=== PATIENT | male | born 1945 | race Caucasian/White ===

== ENCOUNTER 2022-04-11 10:34 | Inpatient (IN) | payer MEDICARE, BC, SELFPAY ==
[2022-04-11] VITALS (11 sets, daily range): BP systolic 132–187; BP diastolic 46–106; PULSE 57–73; RESP 14–20; TEMP 36.2–37.5; O2SAT 86–98; BMI 32.6
--- NOTE | 2022-04-11 11:07 | ED.GENADULT ---
HPI - General Adult General Time Seen by Provider: 11:06 <Juan Méndez MD - Last Filed: 05/04/22 11:12> Date Seen: 04/11/22 <Juan Méndez MD - Last Filed: 05/04/22 11:12> Chief complaint: Abdominal Pain <Juan Méndez MD - Last Filed: 05/04/22 11:12> Stated complaint: abdominal pain/vomiting <Juan Méndez MD - Last Filed: 05/04/22 11:12> Time Seen by Provider: 04/11/22 11:04 <Juan Méndez MD - Last Filed: 05/04/22 11:12> Source: patient and family <Juan Méndez MD - Last Filed: 05/04/22 11:12> Mode of arrival: ambulatory <Juan Méndez MD - Last Filed: 05/04/22 11:12> Limitations: no limitations <Juan Méndez MD - Last Filed: 05/04/22 11:12> History of Present Illness HPI narrative: Bimal is a 76-year-old male past medical history includes atrial fibrillation on chronic anticoagulation with Eliquis, CAD status post coronary artery bypass, heartburn, hyperlipidemia, status post appendectomy presents emergency department with with abdominal pain and vomiting. Patient states he woke up yesterday morning and had generalized abdominal pain, bloating sensation, after he ate lunch which was a stir hester in the abdominal bloating upward. He ended up vomiting 6-7 times, nonbloody nonbilious, the generalized abdominal pain continued throughout the day and night. No associated fevers, he has had chills, his nausea has improved, he had a small hard bowel movement yesterday, he is passing gas, denies any urinary complaints. Denies any upper respiratory complaints. Pain is 8/10, generalized no radiation. Due to worsening pain he presents emergency deprtment. <Juan Méndez MD - Last Filed: 05/04/22 11:12> Related Data Home medications: Home Medications Medication Instructions Recorded Confirmed allopurinol 300 mg tablet 300 mg PO DAILY 04/11/22 04/11/22 apixaban 5 mg tablet (Eliquis) 5 mg PO BID 04/11/22 04/11/22 ascorbic acid (vitamin C) 1,000 mg 1 g PO DAILY 04/11/22 04/11/22 tablet (Vitamin C) aspirin 81 mg chewable tablet 81 mg PO DAILY 04/11/22 04/11/22 (Aspirin Childrens) atenolol 100 mg tablet 100 mg PO DAILY 04/11/22 04/11/22 atorvastatin 40 mg tablet 40 mg PO HS 04/11/22 04/11/22 cholecalciferol (vitamin D3) 50 2,000 unit PO DAILY 04/11/22 04/11/22 mcg (2,000 unit) capsule (D3-2000) coQ10 (ubiquinol) 100 mg capsule 60 mg PO DAILY 04/11/22 04/11/22 kyolic (garlic) PO DAILY 04/11/22 losartan 100 mg tablet 100 mg PO HS 04/11/22 04/11/22 magnesium citrate 100 mg capsule 400 mg PO DAILY 04/11/22 04/11/22 metformin 500 mg tablet 1,000 mg PO BIDWM 04/11/22 04/11/22 omeprazole 20 mg capsule,delayed 20 mg PO DAILY 04/11/22 04/11/22 release vitamin B complex 1 tab PO DAILY 04/11/22 04/11/22 Previous Rx's Medication Instructions Recorded oxycodone 5 mg tablet 5 mg PO Q4H PRN #15 tab 04/14/22 <Juan Méndez MD - Last Filed: 05/04/22 11:12> Allergies/adverse reactions: Allergies Allergy/AdvReac Type Severity Reaction Status Date / Time lisinopril Allergy Mild Cough Verified 04/11/22 11:02 ibuprofen AdvReac Unknown Unverified 04/11/22 19:19 <Juan Méndez MD - Last Filed: 05/04/22 11:12> Review of Systems Status of ROS: Reports: 10 or more systems reviewed and unremarkable except as noted in History and below <Juan Méndez MD - Last Filed: 05/04/22 11:12> [facility] Medical History: Medical History (Updated 04/22/22 @ 00:02 by ) Atrial fibrillation Chronic anticoagulation CKD (chronic kidney disease) stage 3, GFR 30-59 ml/min Coronary artery disease Diabetes mellitus Gallstone pancreatitis GERD (gastroesophageal reflux disease) Gout Hyperlipidemia Hypertension Paroxysmal atrial fibrillation Stroke (cerebrum) Stroke aborted by administration of thrombolytic agent <Juan Méndez MD - Last Filed: 05/04/22 11:12> Surgical History: Surgical History (Updated 04/14/22 @ 11:06 by Lily Brothers MD) H/O arthroscopic knee surgery H/O shoulder replacement History of knee replacement procedure of left knee History of knee replacement procedure of right knee History of tonsillectomy S/P appendectomy S/P CABG x 2 S/P CABG x 4 S/P ear surgery S/P laparoscopic cholecystectomy <Juan Méndez MD - Last Filed: 05/04/22 11:12> Family History: Family History (Updated 04/11/22 @ 18:17 by Lily Brothers MD) Other Coronary artery disease <Juan Méndez MD - Last Filed: 05/04/22 11:12> Social History: Social History (Updated 04/11/22 @ 18:17 by Lily Brothers MD) Narrative: 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 He is . He is a former smoker. He does not currently drink alcohol. Highest level of school completed/degree received: high school graduate Smoking Status: Former smoker Do you use any of these nicotine containing products: None How often do you have a drink containing alcohol: never AUDIT-C Alcohol total score: 0 Non-prescribed substance use: denies use Caffeine: Yes service: Yes <Juan Méndez MD - Last Filed: 05/04/22 11:12> Exam Const: Vital Signs, click to edit/add: Vital Signs - 24 hr 04/11/22 10:40 Temperature 98.0 F Pulse Rate [Right Radial] 57 L Respiratory Rate 16 Blood Pressure [Ri ght Upper Arm] 183/78 H Pulse Oximetry 98 <Juan Méndez MD - Last Filed: 05/04/22 11:12> Common normals: no apparent distress and oriented x3 <Juan Méndez MD - Last Filed: 05/04/22 11:12> Exam limitations: altered mental status <Juan Méndez MD - Last Filed: 05/04/22 11:12> General appearance: cooperative <Juan Méndez MD - Last Filed: 05/04/22 11:12> HENMT: Common normals: normocephalic, external ears normal, TM's normal bilaterally and external nose normal <Juan Méndez MD - Last Filed: 05/04/22 11:12> Head and scalp: normal to inspection and normocephalic <Juan Méndez MD - Last Filed: 05/04/22 11:12> Nose: external nose normal <Juan Méndez MD - Last Filed: 05/04/22 11:12> External ear: external ears normal <Juan Méndez MD - Last Filed: 05/04/22 11:12> Tympanic membrane: TM's normal bilaterally <Juan Méndez MD - Last Filed: 05/04/22 11:12> Mouth: oral and palatal mucosa normal <Juan Méndez MD - Last Filed: 05/04/22 11:12> Throat: posterior oropharynx normal <Juan Méndez MD - Last Filed: 05/04/22 11:12> Eye: Common normals: PERRL and EOMs intact bilaterally <Juan Méndez MD - Last Filed: 05/04/22 11:12> Pupil: PERRL <Juan Méndez MD - Last Filed: 05/04/22 11:12> Neck & C-Spine: Common normals: full ROM, no lymphadenopathy, supple and no JVD <Juan Méndez MD - Last Filed: 05/04/22 11:12> Lymph: Lymphatic: no lymphadenopathy noted <Juan Méndez MD - Last Filed: 05/04/22 11:12> Chest: Common normals: inspection of chest normal <Juan Méndez MD - Last Filed: 05/04/22 11:12> Resp: Common normals: normal respiratory effort and clear to auscultation bilaterally <Juan Méndez MD - Last Filed: 05/04/22 11:12> Auscultation: clear to auscultation bilaterally <Juan Méndez MD - Last Filed: 05/04/22 11:12> Cardio: Common normals: no JVD, S1 normal heart sound and S2 normal heart sound <Juan Méndez MD - Last Filed: 05/04/22 11:12> Heart sounds: S1 normal and S2 normal <Juan Méndez MD - Last Filed: 05/04/22 11:12> GI: Other: Tender to palpation in all four quadrant to light palpation, bowel sounds are hypoactive. As rebound, no guarding <Juan Méndez MD - Last Filed: 05/04/22 11:12> : Common normals: no CVA tenderness <Juan Méndez MD - Last Filed: 05/04/22 11:12> Bladder/kidney exam: no CVA tenderness <Juan Méndez MD - Last Filed: 05/04/22 11:12> Back & Pelvis: Common normals: no CVA tenderness and thoracic and lumbar spine normal to inspection <Juan Méndez MD - Last Filed: 05/04/22 11:12> Extremity: Common normals: normal to inspection and full ROM <Juan Méndez MD - Last Filed: 05/04/22 11:12> Neuro: Common normals: oriented x3, CN's II-XII intact bilaterally, moves all extremities and no focal motor deficits <Juan Méndez MD - Last Filed: 05/04/22 11:12> Course Course Hospital Course: Patient was admitted to the hospital with abdominal pain starting the day prior to admission. He had nausea vomiting anorexia. In the emergency department he was found to have cholecystitis with gallstone pancreatitis. Yesterday he was taken to the OR by Dr. Brothers where he had an uncomplicated laparoscopic cholecystectomy. Since that time he has done very well without postoperative complications. <Juan Méndez MD - Last Filed: 05/04/22 11:12> Reevaluation(s) Reevaluation #1: Patient was updated on his imaging results, CT showed cholelithiasis with small amount of pericholecystic fluid, noted adjacent to the 2nd portion of the duodenitis or pancreatitis, read by Dr. Castellanos. patient and updated. Plan to call Dr. Brothers. <Juan Méndez MD - Last Filed: 05/04/22 11:12> Time: 14:59 <Juan Méndez MD - Last Filed: 05/04/22 11:12> Reevaluation #2: Spoke with Dr. Brothers surgery on-call, recommend admission to the hospitalist, follow trending lipase levels, and obtain US limited rule out cholecystitis and bile duct dilatation. Possible surgery in the next 2-3 days, this discussed with patient and mammogram this plan. To call hospitalist. <Juan Méndez MD - Last Filed: 05/04/22 11:12> Time: 15:00 <Juan Méndez MD - Last Filed: 05/04/22 11:12> Reevaluation #3: Spoke with hospitalist Dr. Dillan POLO, she accepts care of the patient to a [facility] surgery bed. All questions answered. <Juan Méndez MD - Last Filed: 05/04/22 11:12> Time: 15:13 <Juan Méndez MD - Last Filed: 05/04/22 11:12> Vital Signs Vital signs: Initial Vital Signs Temperature 98.0 F 04/11/22 10:40 Temperature Source Temporal Artery Scan 04/11/22 10:40 Pulse Rate 57 L 04/11/22 10:40 Pulse Rhythm 04/11/22 10:40 Pulse Strength 0+ Absent 04/11/22 10:40 Respiratory Rate 16 04/11/22 10:40 Blood Pressure 183/78 H 04/11/22 10:40 Blood Pressure Mean 113 04/11/22 10:40 Blood Pressure Position Sitting 04/11/22 10:40 Pulse Oximetry 98 04/11/22 10:40 Oxygen Delivery Method 04/11/22 10:40 Vital Signs Temperature 98.0 F 04/11/22 10:40 Pulse Rate 57 L 04/11/22 10:40 Respiratory Rate 16 04/11/22 10:40 Blood Pressure 183/78 H 04/11/22 10:40 Pulse Oximetry 98 04/11/22 10:40 Temperature 98.4 F 04/14/22 11:44 Pulse Rate 52 L 04/14/22 11:00 Respiratory Rate 18 04/14/22 11:00 Blood Pressure 158/77 H 04/14/22 11:00 Pulse Oximetry 92 04/14/22 11:00 <Juan Méndez MD - Last Filed: 05/04/22 11:12> Medical Decision Making Lab Data Labs: Lab Results 04/11/22 04/11/22 04/11/22 Range/Units 00:26 11:47 11:47 WBC 12.67 H (4.50-11.00) K/uL RBC 4.99 (4.30-5.90) m/uL Hgb 15.1 (13.5-17.5) gm/dL Hct 45.8 (37.0-53.0) % MCV 92 (80-100) fL MCH 30 (26-34) pg MCHC 33 (32-36) gm/dL RDW Coeff of Jhonny 13.9 (11.5-15.5) % Plt Count 192 (140-440) K/uL Neut % (Auto) 83.2 H (42.0-72.0) % Lymph % (Auto) 8.3 L (20-44) % [place] % (Auto) 7.9 (0.0-11.0) % Eos % (Auto) 0.2 (0.0-7.0) % Baso % (Auto) 0.2 (0.0-3.0) % Neut # (Auto) 10.50 H (1.7-7.0) K/uL Lymph # (Auto) 1.10 (0.90-2.90) K/uL [place] # (Auto) 1.00 H (0.00-0.90) K/UL Eos # (Auto) 0.00 (0.00-0.50) K/uL Baso # (Auto) 0.00 (0.00-0.30) K/uL Abs Immat Gran (auto) 0.02 (0.00-0.30) K/uL Sodium 139 (135-149) mmol/L Potassium 4.1 (3.6-5.1) mmol/L Chloride 104 (96-114) mmol/L Carbon Dioxide 26 (20-32) mmol/L BUN 21 (7-30) mg/dL Creatinine 1.1 (0.5-1.5) mg/dL Estimated Creat Clear 62.55 Glucose 136 H (60-115) mg/dL Calcium 8.8 (8.4-10.6) mg/dL Total Bilirubin 0.7 (0.1-1.5) mg/dL AST 33 (12-35) U/L ALT 29 (4-50) U/L Alkaline Phosphatase 53 (40-150) U/L C-Reactive Protein 3.4 H (0.5-1.0) mg/dL Total Protein 6.9 (6.0-8.3) g/dL Albumin 4.2 (3.3-5.0) g/dL Lipase 3457 H (23-300) U/L Urine Color (Yellow) Urine Appearance (Clear) Urine pH (5.0-8.5) Ur Specific [place] (1.000-1.030) Urine Protein (Negative) Urine Glucose (UA) (Negative) Urine Ketones (Negative) Urine Blood (Negative) Urine Nitrite (Negative) Urine Bilirubin (Negative) Urine Urobilinogen (0.2-1.0) Ur Leukocyte Esterase (Negative) Urine RBC (0-2) Urine WBC (0-5) Ur Squamous Epith Cells (None-Few) Urine Bacteria (None) SARS-CoV-2 (PCR) (Negative) 04/11/22 04/11/22 Range/Units 12:40 15:25 WBC (4.50-11.00) K/uL RBC (4.30-5.90) m/uL Hgb (13.5-17.5) gm/dL Hct (37.0-53.0) % MCV (80-100) fL MCH (26-34) pg MCHC (32-36) gm/dL RDW Coeff of Jhonny (11.5-15.5) % Plt Count (140-440) K/uL Neut % (Auto) (42.0-72.0) % Lymph % (Auto) (20-44) % [place] % (Auto) (0.0-11.0) % Eos % (Auto) (0.0-7.0) % Baso % (Auto) (0.0-3.0) % Neut # (Auto) (1.7-7.0) K/uL Lymph # (Auto) (0.90-2.90) K/uL [place] # (Auto) (0.00-0.90) K/UL Eos # (Auto) (0.00-0.50) K/uL Baso # (Auto) (0.00-0.30) K/uL Abs Immat Gran (auto) (0.00-0.30) K/uL Sodium (135-149) mmol/L Potassium (3.6-5.1) mmol/L Chloride (96-114) mmol/L Carbon Dioxide (20-32) mmol/L BUN (7-30) mg/dL Creatinine (0.5-1.5) mg/dL Estimated Creat Clear Glucose (60-115) mg/dL Calcium (8.4-10.6) mg/dL Total Bilirubin (0.1-1.5) mg/dL AST (12-35) U/L ALT (4-50) U/L Alkaline Phosphatase (40-150) U/L C-Reactive Protein (0.5-1.0) mg/dL Total Protein (6.0-8.3) g/dL Albumin (3.3-5.0) g/dL Lipase (23-300) U/L Urine Color Yellow (Yellow) Urine Appearance Clear (Clear) Urine pH 5.5 (5.0-8.5) Ur Specific [place] >= 1.030 (1.000-1.030) Urine Protein 1+ A (Negative) Urine Glucose (UA) Negative (Negative) Urine Ketones Negative (Negative) Urine Blood Negative (Negative) Urine Nitrite Negative (Negative) Urine Bilirubin Negative (Negative) Urine Urobilinogen 0.2 (0.2-1.0) Ur Leukocyte Esterase Negative (Negative) Urine RBC 0-2 (0-2) Urine WBC 0-2 (0-5) Ur Squamous Epith Cells None (None-Few) Urine Bacteria None (None) SARS-CoV-2 (PCR) Negative SARS-CoV-2 (Negative) <Juan Méndez MD - Last Filed: 05/04/22 11:12> Discharge Plan Discharge Clinical Impression: Pancreatitis <Juan Méndez MD - Last Filed: 05/04/22 11:12> Patient Disposition: Admitted As Inpatient <Juan Méndez MD - Last Filed: 05/04/22 11:12> Condition: Improved <Juan Méndez MD - Last Filed: 05/04/22 11:12> Activity Level: No strenuous activity <Juan Méndez MD - Last Filed: 05/04/22 11:12> Activity Detail: No lifting more than 20 pounds for 2 weeks <Juan Méndez MD - Last Filed: 05/04/22 11:12> Discharge Diet: Diabetic <Juan Méndez MD - Last Filed: 05/04/22 11:12>
[2022-04-11] MEDS: fentaNYL 100 MCG/2 ML inj 50 MCG IVP (11:55)
[2022-04-11] MEDS: 0.9 % SODIUM CHLORIDE 1000 ml 1,000 ML 125 ML IV (11:55)
[2022-04-11] MEDS: ONDANSETRON 2 MG/ML inj 4 MG IVP (11:55)
[2022-04-11 12:16] LABS: Basophils Percent Auto 0.2 % (0.0-3.0); Eosinophils Percent Auto 0.2 % (0.0-7.0); Hematocrit 45.8 % (37.0-53.0); Hemoglobin* 15.1 gm/dL (13.5-17.5); Immature Granulocytes Abs Auto 0.02 K/uL (0.00-0.30); Lymphocytes Percent Auto 8.3 % (20-44); Mean Corpuscular HGB Conc 33 gm/dL (32-36); Mean Corpuscular Hemoglobin 30 pg (26-34); Mean Corpuscular Volume 92 fL (80-100); Monocytes Percent Auto 7.9 % (0.0-11.0); Neutrophils Percent Auto 83.2 % (42.0-72.0); Platelet Count* 192 K/uL (140-440); RDW Coefficient of Variation % 13.9 % (11.5-15.5); Red Blood Count 4.99 m/uL (4.30-5.90); White Blood Count* 12.67 K/uL (4.50-11.00)
[2022-04-11 12:18] LABS: Slide Review Reflex No
[2022-04-11 12:28] LABS: Chloride* 104 mmol/L (96-114); Sodium* 139 mmol/L (135-149)
[2022-04-11 12:29] LABS: Albumin* 4.2 g/dL (3.3-5.0); Potassium* 4.1 mmol/L (3.6-5.1)
[2022-04-11 12:31] LABS: Aspartate Amino Transferase* 33 U/L (12-35); Bilirubin Total* 0.7 mg/dL (0.1-1.5); Creatinine* 1.1 mg/dL (0.5-1.5); Est. Creatinine Clearance* 62.55; Estimated Glomerular Filt Rate 68.71
[2022-04-11 12:32] LABS: Alanine Aminotransferase* 29 U/L (4-50); Alkaline Phosphatase* 53 U/L (40-150); Blood Urea Nitrogen* 21 mg/dL (7-30); Calcium* 8.8 mg/dL (8.4-10.6); Carbon Dioxide* 26 mmol/L (20-32); Glucose* 136 mg/dL (60-115); Total Protein* 6.9 g/dL (6.0-8.3)
[2022-04-11 12:34] LABS: C Reactive Protein* 3.4 mg/dL (0.5-1.0)
--- NOTE | 2022-04-11 12:40 | CRLHL7_ITS ---
For Patients: As a result of the Century Cures Act, medical imaging exams and procedure reports are released immediately into your electronic medical record. You may view this report before your referring provider. If you have questions, please contact your health care provider. INDICATION: Abdominal pain and vomiting TECHNIQUE: CT abdomen and pelvis acquired with IV contrast. 100 cc Isovue 370 COMPARISON: None FINDINGS: Lower chest: Unremarkable. Liver: Unremarkable. Spleen: Unremarkable. Pancreas: Unremarkable. Gallbladder and bile ducts: Cholelithiasis. Small amount of pericholecystic fluid. Kidneys: Unremarkable. Adrenal glands: Unremarkable. Noted adjacent to the 2nd portion the duodenum. Unremarkable. Sigmoid and descending colon diverticulosis. Vascular structures: Unremarkable. Lymph nodes: Unremarkable. Miscellaneous: Small amount of free fluid in the pelvis. Pelvic Organs: Prostate and megaly. Bones: Unremarkable for age. IMPRESSION: Cholelithiasis with small amount of pericholecystic fluid. Correlate with right upper quadrant pain. Noted adjacent to the 2nd portion the duodenum. Findings may be related to duodenitis or pancreatitis. Correlate with abnormal amylase and lipase. Prostatomegaly. Dictated by Chris Castellanos MD @ 04/11/2022 2:43:28 PM Please note that all CT scans at this facility use dose modulation, iterative reconstruction, and/or weight-based dosing when appropriate to reduce radiation dose to as low as reasonably achievable. Dictated by: Chris Castellanos MD @ 04/11/2022 14:43:47 (Electronically Signed)
[2022-04-11 12:41] LABS: Lipase* 3457 U/L (23-300)
[2022-04-11 12:45] LABS: Appearance Urine Clear (Clear); Bilirubin Urine Negative (Negative); Blood Urine Negative (Negative); Color Urine Yellow (Yellow); Glucose Urine Negative (Negative); Ketones Urine Negative (Negative); Leukocyte Esterase Urine Negative (Negative); Nitrite Urine Negative (Negative); Protein Urine 1+ (Negative); Specific Gravity Urine >= 1.030 (1.000-1.030); Urobilinogen Urine 0.2 (0.2-1.0); pH Urine 5.5 (5.0-8.5)
[2022-04-11 12:53] LABS: RBC Urine 0-2 (0-2); WBC Urine 0-2 (0-5)
--- NOTE | 2022-04-11 14:57 | CRLHL7_ITS ---
For Patients: As a result of the Cures Act, medical imaging exams and procedure reports are released immediately into your electronic medical record. You may view this report before your referring provider. If you have questions, please contact your health care provider. INDICATION: Right upper quadrant pain COMPARISON: CT same day TECHNIQUE: Limited real time bourgeois scale imaging and color Doppler analysis was performed of the gallbladder. FINDINGS: Multiple echogenic stones are present within the gallbladder lumen with associated sludge corresponding to the CT. The gallbladder wall measures up to 5.5 millimeters. The common bile duct measures 6.8 millimeters. There is no evidence of common bowel duct stone. IMPRESSION: Multiple gallstones in the gallbladder lumen with associated sludge and gallbladder wall thickening concerning for cholecystitis. Dictated by Chris Vargas MD @ 04/11/2022 3:48:45 PM (Electronically Signed)
--- NOTE | 2022-04-11 15:08 | ED.NURSE ---
Bed request sent, heads up to powerhouse engineer, Rosie.
--- NOTE | 2022-04-11 15:35 | PM.IMHP1 ---
Hospitalist- H&P: HPI History of Present Illness Time Seen by Provider: 16:38 Date Seen: 04/11/22 Chief complaint: abdominal pain/vomiting Narrative: Bimal Faulkner is a 76 year old male presenting for evaluation of abdominal pain. Starting yesterday he developed progressively worsening abdominal pain, localized to mid epigastric region. Associated symptoms include nausea, vomiting, and loss of appetite. He denies fever, chest pain, sob. He presented to ED where notable workup included RUQ US showing Multiple gallstones in the gallbladder lumen with associated sludge and gallbladder wall thickening concerning for cholecystitis. Notable labs included lipase of 3457. Review of Systems Status of ROS: Reports: 10 or more systems reviewed and unremarkable except as noted in History and below [facility] Medical History (Updated 04/11/22 @ 18:16 by Lily Brothesr MD) Atrial fibrillation Chronic anticoagulation CKD (chronic kidney disease) stage 3, GFR 30-59 ml/min Coronary artery disease Diabetes mellitus GERD (gastroesophageal reflux disease) Gout Hyperlipidemia Stroke (cerebrum) Surgical History (Updated 04/11/22 @ 18:16 by Lily Brothers MD) H/O arthroscopic knee surgery H/O shoulder replacement History of knee replacement procedure of left knee History of knee replacement procedure of right knee History of tonsillectomy S/P appendectomy S/P CABG x 2 S/P CABG x 4 S/P ear surgery Family History (Updated 04/11/22 @ 18:17 by Lily Brothers MD) Other Coronary artery disease Social History (Updated 04/11/22 @ 18:17 by Lily Brothers MD) Narrative: 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 He is . He is a former smoker. He does not currently drink alcohol. Highest level of school completed/degree received: high school graduate Smoking Status: Former smoker Do you use any of these nicotine containing products: None How often do you have a drink containing alcohol: never AUDIT-C Alcohol total score: 0 Non-prescribed substance use: denies use Caffeine: Yes service: Yes Meds Home Medications and Allergies Home Medications Medication Instructions Recorded Confirmed Type allopurinol 300 mg tablet 300 mg PO DAILY 04/11/22 04/11/22 History apixaban 5 mg tablet (Eliquis) 5 mg PO BID 04/11/22 04/11/22 History ascorbic acid (vitamin C) 1,000 mg 1 g PO DAILY 04/11/22 04/11/22 History tablet (Vitamin C) aspirin 81 mg chewable tablet 81 mg PO DAILY 04/11/22 04/11/22 History (Aspirin Childrens) atenolol 100 mg tablet 100 mg PO DAILY 04/11/22 04/11/22 History atorvastatin 40 mg tablet 40 mg PO HS 04/11/22 04/11/22 History cholecalciferol (vitamin D3) 50 2,000 unit PO DAILY 04/11/22 04/11/22 History mcg (2,000 unit) capsule (D3-2000) coQ10 (ubiquinol) 100 mg capsule 60 mg PO DAILY 04/11/22 04/11/22 History kyolic (garlic) PO DAILY 04/11/22 History losartan 100 mg tablet 100 mg PO HS 04/11/22 04/11/22 History magnesium citrate 100 mg capsule 400 mg PO DAILY 04/11/22 04/11/22 History metformin 500 mg tablet 1,000 mg PO BIDWM 04/11/22 04/11/22 History omeprazole 20 mg capsule,delayed 20 mg PO DAILY 04/11/22 04/11/22 History release vitamin B complex 1 tab PO DAILY 04/11/22 04/11/22 History Allergies Allergy/AdvReac Type Severity Reaction Status Date / Time lisinopril Allergy Mild Cough Verified 04/11/22 11:02 ibuprofen AdvReac Unknown Unverified 04/11/22 19:19 Exam Narrative: Exam Narrative: Gen: NAD Neck: Supple CV: Bradycardic normal s1 s2 Lungs: CTAB Abd: Mid epigastric tenderness no rebound or guarding MSK: age appropriate muscle mass Neuro: AOX3, CN grossly intact Psych: appropriate affect Skin: warm, dry no rash on face Const: Vital Signs, click to edit/add: Vital Signs - 24 hr 04/11/22 10:40 Temperature 98.0 F Pulse Rate [Right Radial] 57 L Respiratory Rate 16 Blood Pressure [Ri ght Upper Arm] 183/78 H Pulse Oximetry 98 Hospitalist - H&P: Result Labs Labs: Short CBC 04/11/22 Range/Units 11:47 WBC 12.67 H (4.50-11.00) K/uL Hgb 15.1 (13.5-17.5) gm/dL Hct 45.8 (37.0-53.0) % Plt Count 192 (140-440) K/uL BMP 04/11/22 00:26 Sodium 139 Potassium 4.1 Chloride 104 Carbon Dioxide 26 BUN 21 Creatinine 1.1 Glucose 136 H Calcium 8.8 Liver Function 04/11/22 Range/Units 00:26 Total Bilirubin 0.7 (0.1-1.5) mg/dL AST 33 (12-35) U/L ALT 29 (4-50) U/L Alkaline Phosphatase 53 (40-150) U/L Albumin 4.2 (3.3-5.0) g/dL Urine 04/11/22 Range/Units 12:40 Urine Color Yellow (Yellow) Urine Appearance Clear (Clear) Urine pH 5.5 (5.0-8.5) Ur Specific [place] >= 1.030 (1.000-1.030) Urine Protein 1+ A (Negative) Urine Glucose (UA) Negative (Negative) Imaging US - abdomen: Radiologist's impression: Multiple gallstones in the gallbladder lumen with associated sludge and gallbladder wall thickening concerning for cholecystitis. Assessment and Plan Assessment and plan (1) Chronic anticoagulation: Status: Acute Plan Assessment: Bimal Faulkner is a 76 year old male presenting for evaluation of abdominal pain. Starting yesterday he developed progressively worsening abdominal pain, localized to mid epigastric region. Associated symptoms include nausea, vomiting, and loss of appetite. He denies fever, chest pain, sob. He presented to ED where notable workup included RUQ US showing Multiple gallstones in the gallbladder lumen with associated sludge and gallbladder wall thickening concerning for cholecystitis. Notable labs included lipase of 3457. 1. Gallstone pancreatitis; r/o cholecystitis 2. Hx of CAD/CABG-4V 3. Hx of CVA 4. Hx of CKD Stage III 5. Hx of HTN 6. Hx of HLD 7. Hx of atrial fibrillation on eliquis 8. Hx of GERD Plan -hold eliquis -pain control -IVF -IV PPI -SSI -follow lipase/LFTs; if increasing likely will need MRCP -ok to eat until timing of surgery finalized; possible surgery on Saturday Code-Full DVT ppx-SCD
[2022-04-11] MEDS: HYDROmorphone 0.5 mg/0.5 ml inj IVP ×3 (16:11→23:11)
[2022-04-11 16:23] LABS: SARS PCR* Negative SARS-CoV-2 (Negative)
--- NOTE | 2022-04-11 16:28 | ED.GENADULT ---
HPI - General Adult General Chief complaint: Abdominal Pain Stated complaint: abdominal pain/vomiting Time Seen by Provider: 04/11/22 11:04 Source: patient and family Mode of arrival: ambulatory Limitations: no limitations Related Data Home Medications Medication Instructions Recorded Confirmed allopurinol 300 mg tablet 300 mg PO DAILY 04/11/22 04/11/22 apixaban 5 mg tablet (Eliquis) 5 mg PO BID 04/11/22 04/11/22 ascorbic acid (vitamin C) 1,000 mg 1 g PO DAILY 04/11/22 04/11/22 tablet (Vitamin C) aspirin 81 mg chewable tablet 81 mg PO DAILY 04/11/22 04/11/22 (Aspirin Childrens) atenolol 100 mg tablet 100 mg PO DAILY 04/11/22 04/11/22 atorvastatin 40 mg tablet 40 mg PO HS 04/11/22 04/11/22 cholecalciferol (vitamin D3) 50 2,000 unit PO DAILY 04/11/22 04/11/22 mcg (2,000 unit) capsule (D3-2000) coQ10 (ubiquinol) 100 mg capsule 60 mg PO DAILY 04/11/22 04/11/22 kyolic (garlic) PO DAILY 04/11/22 losartan 100 mg tablet 100 mg PO HS 04/11/22 04/11/22 magnesium citrate 100 mg capsule 400 mg PO DAILY 04/11/22 04/11/22 metformin 500 mg tablet 1,000 mg PO BIDWM 04/11/22 04/11/22 omeprazole 20 mg capsule,delayed 20 mg PO DAILY 04/11/22 04/11/22 release vitamin B complex 1 tab PO DAILY 04/11/22 04/11/22 Allergies Allergy/AdvReac Type Severity Reaction Status Date / Time lisinopril Allergy Mild Cough Verified 04/11/22 11:02 ibuprofen AdvReac Unknown Unverified 04/11/22 19:19 [facility] Medical History (Updated 04/11/22 @ 18:16 by Lily Brothers MD) Atrial fibrillation Chronic anticoagulation CKD (chronic kidney disease) stage 3, GFR 30-59 ml/min Coronary artery disease Diabetes mellitus GERD (gastroesophageal reflux disease) Gout Hyperlipidemia Stroke (cerebrum) Surgical History (Updated 04/11/22 @ 18:16 by Lily Brothers MD) H/O arthroscopic knee surgery H/O shoulder replacement History of knee replacement procedure of left knee History of knee replacement procedure of right knee History of tonsillectomy S/P appendectomy S/P CABG x 2 S/P CABG x 4 S/P ear surgery Family History (Updated 04/11/22 @ 18:17 by Lily Brothers MD) Other Coronary artery disease Social History (Updated 04/11/22 @ 18:17 by Lily Brothers MD) Narrative: 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 He is . He is a former smoker. He does not currently drink alcohol. Highest level of school completed/degree received: high school graduate Smoking Status: Former smoker Do you use any of these nicotine containing products: None How often do you have a drink containing alcohol: never AUDIT-C Alcohol total score: 0 Non-prescribed substance use: denies use Caffeine: Yes service: Yes Exam Const: Vital Signs, click to edit/add: Vital Signs - 24 hr 04/11/22 10:40 04/11/22 14:30 04/11/22 15:30 Temperature 98.0 F Pulse Rate [Right Radial] 57 L 63 61 Respiratory Rate 16 16 14 Blood Pressure [Ri t Upper Arm] 183/78 H 183/84 H 177/81 H Pulse Oximetry 98 93 94 Course Course Hospital Course: 11:15 AM: Aidet performed, workup will include IV peripheral, 125 mL maintenance fluids 0.9 normal saline, will obtain CBC, CRP urinalysis, 50 mcg fentanyl and 4 mg IV Zofran for pain and nausea, suspect diverticulitis, clear obtain CT imaging Vital Signs Vital signs: Initial Vital Signs Temperature 98.0 F 04/11/22 10:40 Temperature Source Temporal Artery Scan 04/11/22 10:40 Pulse Rate 57 L 04/11/22 10:40 Pulse Rhythm 04/11/22 10:40 Pulse Strength 0+ Absent 04/11/22 10:40 Respiratory Rate 16 04/11/22 10:40 Blood Pressure 183/78 H 04/11/22 10:40 Blood Pressure Mean 113 04/11/22 10:40 Blood Pressure Position Sitting 04/11/22 10:40 Pulse Oximetry 98 04/11/22 10:40 Oxygen Delivery Method 04/11/22 10:40 Vital Signs Temperature 98.0 F 04/11/22 10:40 Pulse Rate 57 L 04/11/22 10:40 Respiratory Rate 16 04/11/22 10:40 Blood Pressure 183/78 H 04/11/22 10:40 Pulse Oximetry 98 04/11/22 10:40 Temperature 97.2 F L 04/11/22 17:06 Pulse Rate 62 04/11/22 17:06 Respiratory Rate 20 04/11/22 17:06 Blood Pressure 187/73 H 04/11/22 17:06 Pulse Oximetry 92 04/11/22 17:29 Medical Decision Making Lab Data Labs: Lab Results 04/11/22 04/11/22 04/11/22 Range/Units 00:26 11:47 11:47 WBC 12.67 H (4.50-11.00) K/uL RBC 4.99 (4.30-5.90) m/uL Hgb 15.1 (13.5-17.5) gm/dL Hct 45.8 (37.0-53.0) % MCV 92 (80-100) fL MCH 30 (26-34) pg MCHC 33 (32-36) gm/dL RDW Coeff of Jhonny 13.9 (11.5-15.5) % Plt Count 192 (140-440) K/uL Neut % (Auto) 83.2 H (42.0-72.0) % Lymph % (Auto) 8.3 L (20-44) % [place] % (Auto) 7.9 (0.0-11.0) % Eos % (Auto) 0.2 (0.0-7.0) % Baso % (Auto) 0.2 (0.0-3.0) % Neut # (Auto) 10.50 H (1.7-7.0) K/uL Lymph # (Auto) 1.10 (0.90-2.90) K/uL [place] # (Auto) 1.00 H (0.00-0.90) K/UL Eos # (Auto) 0.00 (0.00-0.50) K/uL Baso # (Auto) 0.00 (0.00-0.30) K/uL Abs Immat Gran (auto) 0.02 (0.00-0.30) K/uL Sodium 139 (135-149) mmol/L Potassium 4.1 (3.6-5.1) mmol/L Chloride 104 (96-114) mmol/L Carbon Dioxide 26 (20-32) mmol/L BUN 21 (7-30) mg/dL Creatinine 1.1 (0.5-1.5) mg/dL Estimated Creat Clear 62.55 Glucose 136 H (60-115) mg/dL Calcium 8.8 (8.4-10.6) mg/dL Total Bilirubin 0.7 (0.1-1.5) mg/dL AST 33 (12-35) U/L ALT 29 (4-50) U/L Alkaline Phosphatase 53 (40-150) U/L C-Reactive Protein 3.4 H (0.5-1.0) mg/dL Total Protein 6.9 (6.0-8.3) g/dL Albumin 4.2 (3.3-5.0) g/dL Lipase 3457 H (23-300) U/L Urine Color (Yellow) Urine Appearance (Clear) Urine pH (5.0-8.5) Ur Specific [place] (1.000-1.030) Urine Protein (Negative) Urine Glucose (UA) (Negative) Urine Ketones (Negative) Urine Blood (Negative) Urine Nitrite (Negative) Urine Bilirubin (Negative) Urine Urobilinogen (0.2-1.0) Ur Leukocyte Esterase (Negative) Urine RBC (0-2) Urine WBC (0-5) Ur Squamous Epith Cells (None-Few) Urine Bacteria (None) SARS-CoV-2 (PCR) (Negative) 04/11/22 04/11/22 Range/Units 12:40 15:25 WBC (4.50-11.00) K/uL RBC (4.30-5.90) m/uL Hgb (13.5-17.5) gm/dL Hct (37.0-53.0) % MCV (80-100) fL MCH (26-34) pg MCHC (32-36) gm/dL RDW Coeff of Jhonny (11.5-15.5) % Plt Count (140-440) K/uL Neut % (Auto) (42.0-72.0) % Lymph % (Auto) (20-44) % [place] % (Auto) (0.0-11.0) % Eos % (Auto) (0.0-7.0) % Baso % (Auto) (0.0-3.0) % Neut # (Auto) (1.7-7.0) K/uL Lymph # (Auto) (0.90-2.90) K/uL [place] # (Auto) (0.00-0.90) K/UL Eos # (Auto) (0.00-0.50) K/uL Baso # (Auto) (0.00-0.30) K/uL Abs Immat Gran (auto) (0.00-0.30) K/uL Sodium (135-149) mmol/L Potassium (3.6-5.1) mmol/L Chloride (96-114) mmol/L Carbon Dioxide (20-32) mmol/L BUN (7-30) mg/dL Creatinine (0.5-1.5) mg/dL Estimated Creat Clear Glucose (60-115) mg/dL Calcium (8.4-10.6) mg/dL Total Bilirubin (0.1-1.5) mg/dL AST (12-35) U/L ALT (4-50) U/L Alkaline Phosphatase (40-150) U/L C-Reactive Protein (0.5-1.0) mg/dL Total Protein (6.0-8.3) g/dL Albumin (3.3-5.0) g/dL Lipase (23-300) U/L Urine Color Yellow (Yellow) Urine Appearance Clear (Clear) Urine pH 5.5 (5.0-8.5) Ur Specific [place] >= 1.030 (1.000-1.030) Urine Protein 1+ A (Negative) Urine Glucose (UA) Negative (Negative) Urine Ketones Negative (Negative) Urine Blood Negative (Negative) Urine Nitrite Negative (Negative) Urine Bilirubin Negative (Negative) Urine Urobilinogen 0.2 (0.2-1.0) Ur Leukocyte Esterase Negative (Negative) Urine RBC 0-2 (0-2) Urine WBC 0-2 (0-5) Ur Squamous Epith Cells None (None-Few) Urine Bacteria None (None) SARS-CoV-2 (PCR) Negative SARS-CoV-2 (Negative) Discharge Plan Discharge Clinical Impression: Pancreatitis Patient Disposition: Admitted As Inpatient
--- NOTE | 2022-04-11 16:33 | ED.NURSE ---
Report given to M/S Aydee and Beatriz, RNs. Pt will go to Rm 258.
[2022-04-11] MEDS: LACTATED RINGERS 1000 ML 1,000 ML IV (17:45)
[2022-04-11 17:59] LABS: Glucose, Point-of-Care* 149 mg/dl (60-115)
--- NOTE | 2022-04-11 18:04 | PM.GSCN ---
History of Present Illness Consult details Consult date: 04/11/22 Reason for consult: abdominal pain Requesting physician: Juan Méndez Narrative: The patient is a 76-year-old male who presents to the emergency department with abdominal pain since yesterday morning. He states that he woke up with abdominal pain and then had lunch around 3:00 p.m.. He had some stir hester which he immediately vomited up. He states that he vomited 6-7 times after that. He has never had pain like this before. He states that the pain is located in his whole abdomen not really worse on the right or left and does not radiate. He states that pain medication helps. It is not necessarily worse with movement but he is more uncomfortable when he lays on his back. He has not had fevers. Yesterday he had small firm bowel movements which is a bit unusual for him. He states that since he started Eliquis about 6 months ago he has had loose stools. He last took his Eliquis today. Review of Systems Status of ROS: Reports: 10 or more systems reviewed and unremarkable except as noted in History and below PFSH PFS Medical History (Updated 04/11/22 @ 18:16 by Lily Brothers MD) Atrial fibrillation Chronic anticoagulation CKD (chronic kidney disease) stage 3, GFR 30-59 ml/min Coronary artery disease Diabetes mellitus GERD (gastroesophageal reflux disease) Gout Hyperlipidemia Stroke (cerebrum) Surgical History (Updated 04/11/22 @ 18:16 by Lily Brothers MD) H/O arthroscopic knee surgery H/O shoulder replacement History of knee replacement procedure of left knee History of knee replacement procedure of right knee History of tonsillectomy S/P appendectomy S/P CABG x 2 S/P CABG x 4 S/P ear surgery Family History (Updated 04/11/22 @ 18:17 by Lily Brothers MD) Other Coronary artery disease Social History (Updated 04/11/22 @ 18:17 by Lily Brothers MD) Narrative: 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 He is . He is a former smoker. He does not currently drink alcohol. Highest level of school completed/degree received: high school graduate Smoking Status: Former smoker Do you use any of these nicotine containing products: None How often do you have a drink containing alcohol: never AUDIT-C Alcohol total score: 0 Non-prescribed substance use: denies use Caffeine: Yes service: Yes Meds Home Medications and Allergies Home Medications Medication Instructions Recorded Confirmed Type allopurinol 300 mg tablet 300 mg PO DAILY 04/11/22 04/11/22 History apixaban 5 mg tablet (Eliquis) 5 mg PO BID 04/11/22 04/11/22 History ascorbic acid (vitamin C) 1,000 mg 1 g PO DAILY 04/11/22 04/11/22 History tablet (Vitamin C) aspirin 81 mg chewable tablet 81 mg PO DAILY 04/11/22 04/11/22 History (Aspirin Childrens) atenolol 100 mg tablet 100 mg PO DAILY 04/11/22 04/11/22 History atorvastatin 40 mg tablet 40 mg PO HS 04/11/22 04/11/22 History cholecalciferol (vitamin D3) 50 2,000 unit PO DAILY 04/11/22 04/11/22 History mcg (2,000 unit) capsule (D3-2000) coQ10 (ubiquinol) 100 mg capsule 60 mg PO DAILY 04/11/22 04/11/22 History kyolic (garlic) PO DAILY 04/11/22 History losartan 100 mg tablet 100 mg PO HS 04/11/22 04/11/22 History magnesium citrate 100 mg capsule 400 mg PO DAILY 04/11/22 04/11/22 History metformin 500 mg tablet 1,000 mg PO BIDWM 04/11/22 04/11/22 History omeprazole 20 mg capsule,delayed 20 mg PO DAILY 04/11/22 04/11/22 History release vitamin B complex 1 tab PO DAILY 04/11/22 04/11/22 History Allergies Allergy/AdvReac Type Severity Reaction Status Date / Time lisinopril Allergy Mild Cough Verified 04/11/22 11:02 Exam Narrative: Exam Narrative: General appearance: Alert, cooperative, and in no distress Eyes: PERRLA, eye lids clear, and sclera white HENT Head: Normocephalic Ears: External ears normal Pulmonary: Clear to auscultation bilaterally Cardiovascular Heart: regular rate and rhythm Gastrointestinal Abdominal: scars consistent with surgical history. He is diffusely tender in his abdomen with some guarding. The pain seems to be worst in the epigastric region right upper quadrant. No hernias. Musculoskeletal: Extremities: Upper: Both upper extremities have normal joint range of motion and intact strength. Lower: Both lower extremities have normal joint range of motion and intact strength. Skin: Normal skin color, texture, and turgor. No rashes or lesions. Neurologic: No focal deficits Psychiatric: Alert, oriented, cooperative, normal affect. Const: Vital Signs, click to edit/add: Vital Signs - 24 hr 04/11/22 10:40 04/11/22 14:30 04/11/22 15:30 Temperature 98.0 F Pulse Rate Pulse Rate [Right Pulse Oximeter] Pulse Rate [Right Radial] 57 L 63 61 Respiratory Rate 16 16 14 Blood Pressure Blood Pressure [Ri ght Arm] Blood Pressure [Ri ght Upper Arm] 183/78 H 183/84 H 177/81 H Pulse Oximetry 98 93 94 04/11/22 16:48 04/11/22 17:06 04/11/22 17:29 Temperature 98.0 F 97.2 F L Pulse Rate 63 Pulse Rate [Right Pulse Oximeter] 62 Pulse Rate [Right Radial] Respiratory Rate 14 20 Blood Pressure 177/81 H Blood Pressure [Ri ght Arm] 187/73 H Blood Pressure [Ri ght Upper Arm] Pulse Oximetry 92 92 Results Labs Labs: Abnormal lab results 04/11/22 04/11/22 04/11/22 Range/Units 00:26 11:47 11:47 WBC 12.67 H (4.50-11.00) K/uL Neut % (Auto) 83.2 H (42.0-72.0) % Lymph % (Auto) 8.3 L (20-44) % Neut # (Auto) 10.50 H (1.7-7.0) K/uL [place] # (Auto) 1.00 H (0.00-0.90) K/UL Glucose 136 H (60-115) mg/dL C-Reactive Protein 3.4 H (0.5-1.0) mg/dL Lipase 3457 H (23-300) U/L Urine Protein (Negative) POC Glucose (60-115) mg/dl 04/11/22 04/11/22 Range/Units 12:40 17:50 WBC (4.50-11.00) K/uL Neut % (Auto) (42.0-72.0) % Lymph % (Auto) (20-44) % Neut # (Auto) (1.7-7.0) K/uL [place] # (Auto) (0.00-0.90) K/UL Glucose (60-115) mg/dL C-Reactive Protein (0.5-1.0) mg/dL Lipase (23-300) U/L Urine Protein 1+ A (Negative) POC Glucose 149 H (60-115) mg/dl Diabetes panel 04/11/22 Range/Units 00:26 Sodium 139 (135-149) mmol/L Potassium 4.1 (3.6-5.1) mmol/L Chloride 104 (96-114) mmol/L Carbon Dioxide 26 (20-32) mmol/L BUN 21 (7-30) mg/dL Creatinine 1.1 (0.5-1.5) mg/dL Glucose 136 H (60-115) mg/dL Calcium 8.8 (8.4-10.6) mg/dL AST 33 (12-35) U/L ALT 29 (4-50) U/L Alkaline Phosphatase 53 (40-150) U/L Total Protein 6.9 (6.0-8.3) g/dL Albumin 4.2 (3.3-5.0) g/dL Calcium panel 04/11/22 Range/Units 00:26 Calcium 8.8 (8.4-10.6) mg/dL Albumin 4.2 (3.3-5.0) g/dL Pituitary panel 04/11/22 Range/Units 00:26 Sodium 139 (135-149) mmol/L Potassium 4.1 (3.6-5.1) mmol/L Chloride 104 (96-114) mmol/L Carbon Dioxide 26 (20-32) mmol/L BUN 21 (7-30) mg/dL Creatinine 1.1 (0.5-1.5) mg/dL Glucose 136 H (60-115) mg/dL Calcium 8.8 (8.4-10.6) mg/dL Adrenal panel 04/11/22 Range/Units 00:26 Sodium 139 (135-149) mmol/L Potassium 4.1 (3.6-5.1) mmol/L Chloride 104 (96-114) mmol/L Carbon Dioxide 26 (20-32) mmol/L BUN 21 (7-30) mg/dL Creatinine 1.1 (0.5-1.5) mg/dL Glucose 136 H (60-115) mg/dL Calcium 8.8 (8.4-10.6) mg/dL Total Bilirubin 0.7 (0.1-1.5) mg/dL AST 33 (12-35) U/L ALT 29 (4-50) U/L Alkaline Phosphatase 53 (40-150) U/L Total Protein 6.9 (6.0-8.3) g/dL Albumin 4.2 (3.3-5.0) g/dL All other labs normal. Imaging Additional studies: Diagnostic Imaging Report Patient: Bimal Faulkner [facility]#: [id number]: [id number]: [id number] Date: 04/11/22Attending Dr: Ronak Grimaldo M.D. Ordering Physician: Juan Méndez M.D. Date of Service: 04/11/22 Procedure(s): US abdomen limited Accession Number(s): [id number] cc: Zonia Galloway MD; Juan Méndez M.D.~ For Patients: As a result of the Cures Act, medical imaging exams and procedure reports are released immediately into your electronic medical record. You may view this report before your referring provider. If you have questions, please contact your health care provider. INDICATION: Right upper quadrant pain COMPARISON: CT same day TECHNIQUE: Limited real time bourgeois scale imaging and color Doppler analysis was performed of the gallbladder. FINDINGS: Multiple echogenic stones are present within the gallbladder lumen with associated sludge corresponding to the CT. The gallbladder wall measures up to 5.5 millimeters. The common bile duct measures 6.8 millimeters. There is no evidence of common bowel duct stone. IMPRESSION: Multiple gallstones in the gallbladder lumen with associated sludge and gallbladder wall thickening concerning for cholecystitis. Dictated by Chris Vargas MD @ 04/11/2022 3:48:45 PM (Electronically Signed) Diagnostic Imaging Report Patient: Bimal Faulkner [facility]#: [id number]: [id number]:[id number]: EDService Date: 04/11/22Attending Dr: Ordering Physician: Juan Méndez M.D. Date of Service: 04/11/22 Procedure(s): CT abdomen pelvis w con Accession Number(s): [id number] cc: Zonia Galloway MD; Juan Méndez M.D.~ For Patients: As a result of the Century Cures Act, medical imaging exams and procedure reports are released immediately into your electronic medical record. You may view this report before your referring provider. If you have questions, please contact your health care provider. INDICATION: Abdominal pain and vomiting TECHNIQUE: CT abdomen and pelvis acquired with IV contrast. 100 cc Isovue 370 COMPARISON: None FINDINGS: Lower chest: Unremarkable. Liver: Unremarkable. Spleen: Unremarkable. Pancreas: Unremarkable. Gallbladder and bile ducts: Cholelithiasis. Small amount of pericholecystic fluid. Kidneys: Unremarkable. Adrenal glands: Unremarkable. Noted adjacent to the 2nd portion the duodenum. Unremarkable. Sigmoid and descending colon diverticulosis. Vascular structures: Unremarkable. Lymph nodes: Unremarkable. Miscellaneous: Small amount of free fluid in the pelvis. Pelvic Organs: Prostate and megaly. Bones: Unremarkable for age. IMPRESSION: Cholelithiasis with small amount of pericholecystic fluid. Correlate with right upper quadrant pain. Noted adjacent to the 2nd portion the duodenum. Findings may be related to duodenitis or pancreatitis. Correlate with abnormal amylase and lipase. Prostatomegaly. Dictated by Chris Castellanos MD @ 04/11/2022 2:43:28 PM Please note that all CT scans at this facility use dose modulation, iterative reconstruction, and/or weight-based dosing when appropriate to reduce radiation dose to as low as reasonably achievable. Dictated by: Chris Castellanos MD @ 04/11/2022 14:43:47 (Electronically Signed) Echocardiogram done in 2019 for CVA showed: Final Impressions: Limited Echocardiogram performed 1. Normal LV size, normal wall thickness, normal function with an estimated EF of 60 - 65%. 2. Inferior wall and posterior wall are abnormal. 3. Right ventricular cavity size is normal, global systolic RV function is normal. 4. No hemodynamically significant valve disease detected. 5. Negative bubble study. Assessment and Plan Assessment and plan (1) Chronic anticoagulation: Status: Acute (2) Cholecystitis: Status: Acute (3) Pancreatitis: Status: Acute (4) Coronary artery disease: Status: Acute (5) Diabetes mellitus: Status: Acute Plan The patient is a 76-year-old male with likely gallstone pancreatitis and possible cholecystitis. We discussed that the treatment for this is to allow the pancreas to cool off and follow labs, and once he is improved we would proceed with cholecystectomy. However, if his pancreatitis worsens then we would have to evaluate the common bile duct to see if there is an obstructing stone and he may need ERCP 1st. He is currently anticoagulated with Eliquis and took his last dose today. For that reason he will need to wait 2-3 days before proceeding for surgery which should correspond with his pancreas improving as well. Because of his white count and cholecystitis as well as diabetes status, I do recommend antibiotics. He and I discussed gallbladder anatomy, physiology as well as cholecystectomy. we discussed risks of surgery including bleeding, injury to other structures, need for conversion to open and need for additional procedures. We also discussed benefits of surgery to prevent further episodes of pancreatitis as well as recovery. we will plan on repeating labs tomorrow and depending on those labs we will decide on continued NPO status and IV fluids versus MRCP. Likely surgery would not be possible for Saturday given the amount of fluid around the pancreas and the fact that he is on Eliquis. I would plan to do a cholangiogram at the time of surgery as well. Given his significant cardiac history will make sure that he has no cardiac contraindications to surgery. I did discuss the plan with Dr. Low. the patient is agreeable with this plan.
[2022-04-11] MEDS: LACTATED RINGERS 1000 ML 1,000 ML 125 ML IV (18:56)
--- NOTE | 2022-04-11 19:05 | PC.NURSE ---
[id number] Pt arrived to the unit at 1545 from the ED and accompanied by . Primary c/o abdominal pain and nausea since 04/10/22, CT and U/S found abnormalities to pancreas and gallbladder. Lipase levels elevated to above 3000. Pain managed in ED with fentanyl for pain 05/16, pain score on unit 03/16. Ambulates and transfers independently. Alert and oriented x3. Hearing aids in place. Regular diet ordered but starting with liquids and advanced as tolerated per patient request. vital signs stable, IV R AC patent and asymptomatic.
[2022-04-11] MEDS: PIPERACILLIN/TAZOBACTAM 4.5 GM in 0.9 % SODIUM CHLORIDE Mini-bag 100 ML IVPB (19:55)
--- NOTE | 2022-04-11 20:28 | PC.NURSE ---
Addendum entered by West Torres RN 04/12/22 04:35: 0400 rates pain 2/10 gave Tylenol. Temp 98.1. Using urinal in bed. Ind w/cares. Tolerating water. Addendum entered by West Torres RN 04/12/22 00:13: Temp WNL rigors resolved. BP and P trending downwards. Routine vitals. Remains on 4LNC occ tachypneic. Pain to a 4/10 gave Dilaudid. Peripheral pulses picking up and pt warmed up. Was kept NPO til 2300 and then clear liquids. Original Note: Temp 99.5. Pain 8/10. Pt is having rigors, a delayed cap refill and weak peripheral pulses. Abdomen is exquisitely tender to light palpation generally. O2 sats 90% on RA. Dilaudid given. O2 sats 86% RA. O2 increased stepwise to 4LNC. NIBP applied 15min. Hand and feet are cool. BP 177/106. BG spot check 99. Zosyn given still awaiting pharm verification. Entered Yusuf for Ibuprofen per pt report. Entered order for Tylenol. Dr. Grimaldo notified order given for STAT Lactate.
[2022-04-11] MEDS: ACETAMINOPHEN 325 MG TABLET 650 MG PO (20:53)
[2022-04-11] MEDS: PANTOPRAZOLE SODIUM 40 MG INJ IVP (20:53)
[2022-04-11 21:04] LABS: Lactate* 1.4 mmol/L (0.5-1.9)
[2022-04-11 21:08] LABS: Glucose, Point-of-Care* 99 mg/dl (60-115)
[2022-04-12] VITALS (9 sets, daily range): BP systolic 132–181; BP diastolic 56–83; PULSE 67–82; RESP 20–24; TEMP 36.6–37.4; O2SAT 91–94
[2022-04-12] MEDS: HYDROmorphone 0.5 mg/0.5 ml inj IVP ×6 (01:34→19:57)
[2022-04-12] MEDS: PIPERACILLIN/TAZOBACTAM 4.5 GM in 0.9 % SODIUM CHLORIDE Mini-bag 100 ML IVPB ×4 (01:38→19:56)
[2022-04-12] MEDS: ACETAMINOPHEN 325 MG TABLET 650 MG PO ×2 (03:42→10:19)
[2022-04-12] MEDS: LACTATED RINGERS 1000 ML 1,000 ML 125 ML IV ×2 (05:42→16:58)
[2022-04-12 07:16] LABS: Basophils Percent Auto 0.1 % (0.0-3.0); Eosinophils Percent Auto 0.5 % (0.0-7.0); Hematocrit 40.9 % (37.0-53.0); Hemoglobin* 13.4 gm/dL (13.5-17.5); Immature Granulocytes Abs Auto 0.04 K/uL (0.00-0.30); Lymphocytes Percent Auto 7.7 % (20-44); Mean Corpuscular HGB Conc 33 gm/dL (32-36); Mean Corpuscular Hemoglobin 31 pg (26-34); Mean Corpuscular Volume 93 fL (80-100); Monocytes Percent Auto 10.3 % (0.0-11.0); Neutrophils Percent Auto 81.1 % (42.0-72.0); Platelet Count* 158 K/uL (140-440); RDW Coefficient of Variation % 13.9 % (11.5-15.5); Red Blood Count 4.39 m/uL (4.30-5.90); White Blood Count* 13.83 K/uL (4.50-11.00)
[2022-04-12 07:18] LABS: Slide Review Reflex No
[2022-04-12 07:31] LABS: Albumin* 3.4 g/dL (3.3-5.0); Chloride* 105 mmol/L (96-114)
[2022-04-12 07:32] LABS: Potassium* 3.8 mmol/L (3.6-5.1); Sodium* 138 mmol/L (135-149)
[2022-04-12 07:34] LABS: Alkaline Phosphatase* 44 U/L (40-150); Aspartate Amino Transferase* 27 U/L (12-35); Bilirubin Direct* 0.4 mg/dL (0.0-0.5); Blood Urea Nitrogen* 16 mg/dL (7-30); Carbon Dioxide* 28 mmol/L (20-32); Creatinine* 1.1 mg/dL (0.5-1.5); Est. Creatinine Clearance* 62.55; Estimated Glomerular Filt Rate 68.71
[2022-04-12 07:35] LABS: Alanine Aminotransferase* 19 U/L (4-50); Calcium* 7.8 mg/dL (8.4-10.6); Glucose* 106 mg/dL (60-115); Lipase* 794 U/L (23-300)
[2022-04-12] MEDS: PANTOPRAZOLE SODIUM 40 MG INJ IVP (09:11)
[2022-04-12] MEDS: SODIUM CHLORIDE 0.9 % (FLUSH) 10 ML SYRINGE 5 ML IVF ×3 (09:12→13:55)
[2022-04-12 09:19] LABS: Troponin I* 0.02 ng/mL (0.01-0.04)
[2022-04-12 10:04] LABS: Troponin I* < 0.01 ng/mL (0.01-0.04)
--- NOTE | 2022-04-12 10:12 | PM.IMPN1 ---
Progress Note: A&P Assessment and plan (1) Gallstone pancreatitis: Status: Resolved Assessment and Plan: Lipase has decreased markedly. However patient looks flushed and new oxygen need was noted overnight. 1 L per nasal cannula to keep sats greater than 90%. Respiratory rate is up little to 24. VBG and two-view chest x-ray show: Bilateral atelectasis with trace effusions. No infiltrates. No evidence of pulmonary edema or ARDS. Venous blood gas is reassuring. Patient continues on piperacillin tazobactam. Blood cultures were not drawn. As his lipase has decreased nicely, I am offering him a clear diet. We will keep him NPO at midnight for possible surgery tomorrow. I have ordered blood culture, GGT, A1c, magnesium, BNP, pro lucian, INR, TSH, uric acid, venous blood gas (2) Acute respiratory failure with hypoxia: Status: Resolved Assessment and Plan: New oxygen requirement overnight, however, no workup was started at that time. No history of BOGDAN. Chest x-ray this morning shows bilateral atelectasis with trace effusions. VBG pending. Oxygen requirement has been stable at 1 liter/minute. I suspect this is from overall illness and atelectasis. I will order incentive spirometry and arobika bedside. (3) Coronary artery disease: Problem details: h/o of [place] 1994 1995 CABG: Lutz to D2, SVG to OM1; corroborating angiogram status post stent to proximal LAD, 95% D1 and 90% PDA left untreated 2000: Stent to proximal LAD, left main 2001: stent to RCA 2009: Restenoses of stent of LM/lad. Severe circumflex disease. Stenosis of RCA. NENO x1 to the proximal RCA, EF at that time 55% 02/2014 Stented coronary artery multivessel - [place] was last provider for cardiology Assessment and Plan: EKG was reassuring this morning. Echo is ordered for this afternoon. No evidence of acute coronary syndrome or demand ischemia. Troponin is undetectable. No chest pain. (4) CKD (chronic kidney disease) stage 3, GFR 30-59 ml/min: Status: Acute Assessment and Plan: Stable disease. GFR greater than 60. (5) Paroxysmal atrial fibrillation: Status: Acute Assessment and Plan: Holding Eliquis. Rate control with IV Lopressor as needed. Currently in sinus. (6) Hypertension: Status: Acute Assessment and Plan: I written for IV Lopressor 5 mg q.6 with parameters to hold for heart rate less than 60 or blood pressure, systolic, less than 120. Currently holding his oral home regimen. (7) Chronic anticoagulation: Problem details: Paroxysmal AFib Status: Acute Assessment and Plan: Holding Eliquis for cholecystectomy plan for likely tomorrow. Which would be a 48 hour hold on Eliquis. (8) Diabetes mellitus: Problem details: metformin monotherapy Status: Acute Assessment and Plan: A1c has previously been well controlled. Checking A1c today. Has a sliding scale insulin and Accu-Chek order. (9) Hyperlipidemia: Status: Acute Assessment and Plan: Noted. (10) Cholecystitis: Status: Resolved (11) S/P laparoscopic cholecystectomy: Status: Acute Subjective Interval history: Daily Progress Note - Hospital Medicine Day #: 2 Zosyn day 2 CC: Abdominal pain, vomiting. Gallstone pancreatitis OVERNIGHT UPDATES FROM STAFF & MED, LAB, IMAGING UPDATES Patient started requiring oxygen overnight and his respiratory rate has increased from 18-24. He denies chest pain or shortness of breath. States he feels awful. He rates his abdominal pain a 6/10. But also states he has a little bit hungry. He has never had issues with his gallbladder before. Has never had a history of pancreatitis. He states he felt fine yesterday morning and then started vomiting having abdominal pain yesterday afternoon. His last dose of Eliquis was yesterday morning. He has a complicated history and extensive coronary artery disease. However, the last intervention was 2013 with the [facility] where he received several stents. He does have a history of a three-vessel CABG in the distant past and an [place] in the . He is also newly type 2 diabetic, chronic kidney disease and has had a history of a stroke. CT abdomen pelvis from admission Blood pressure 168/70, pulse 68. Rest burst 24. Afebrile. 93% on 1 L nasal cannula oxygen. White blood cell count went from 12.6-13.8. Hemoglobin went from 15.1 down to 13.4 BMP is stable. Normal renal function with an creatinine clearance of 62. Creatinine of 1.1. Normal electrolytes. Troponin is undetectable CRP is 3.5 Lipase has dropped from 3457 down to 794. I am awaiting other labs that I added on and had redrawn this morning. IMPRESSION: Cholelithiasis with small amount of pericholecystic fluid. Correlate with right upper quadrant pain. Noted adjacent to the 2nd portion the duodenum. Findings may be related to duodenitis or pancreatitis. Correlate with abnormal amylase and lipase. Right upper quadrant ultrasound admission IMPRESSION: Multiple gallstones in the gallbladder lumen with associated sludge and gallbladder wall thickening concerning for cholecystitis. Review of Systems: See subjective Cardiac: No new chest pain/pressure/palpitations. Respiratory: no new dyspnea. GI: No abdominal bloating Objective: Patient looks ill. His face is flushed. He seems a little groggy, noting he had just received IV Dilaudid before my interview. He is generally tender across his abdomen without rebound. There is no pedal edema. There are no crackles in his lungs. He does have a soft holosystolic murmur 2/6. No clicks. Vitals: see above Lungs: Clear. No wheezes. Cardiac: S1S2. No pedal edema Abdomen: Obese. Good bowel sounds. However guards with most of my palpation. Disposition/Potential discharge - Likely to return to previous living situation. Total time is 35 minutes with greater than 50% spent in counseling and coordination of care. Exam Const: Vital Signs, click to edit/add: Vital Signs - 24 hr 04/11/22 10:40 04/11/22 14:30 04/11/22 15:30 Temperature 98.0 F Pulse Rate Pulse Rate [Right Pulse Oximeter] Pulse Rate [Right Radial] 57 L 63 61 Respiratory Rate 16 16 14 Blood Pressure Blood Pressure [Ri ght Arm] Blood Pressure [Ri ght Upper Arm] 183/78 H 183/84 H 177/81 H Pulse Oximetry 98 93 94 04/11/22 16:01 04/11/22 16:48 04/11/22 17:06 Temperature 97.2 F L 98.0 F 97.2 F L Pulse Rate 63 Pulse Rate [Right Pulse Oximeter] 62 62 Pulse Rate [Right Radial] Respiratory Rate 20 14 20 Blood Pressure 177/81 H Blood Pressure [Ri ght Arm] 187/73 H 187/73 H Blood Pressure [Ri ght Upper Arm] Pulse Oximetry 92 92 04/11/22 17:29 04/11/22 20:23 04/11/22 20:53 Temperature 99.5 F 99.5 F Pulse Rate Pulse Rate [Right Pulse Oximeter] 73 Pulse Rate [Right Radial] Respiratory Rate 16 Blood Pressure Blood Pressure [Ri ght Arm] 177/106 H Blood Pressure [Ri ght Upper Arm] Pulse Oximetry 92 86 L 04/11/22 21:18 04/11/22 23:24 04/12/22 03:48 Temperature 97.7 F 98.1 F Pulse Rate Pulse Rate [Right Pulse Oximeter] 66 69 Pulse Rate [Right Radial] Respiratory Rate 20 24 Blood Pressure Blood Pressure [Ri ght Arm] 132/46 L 165/75 H Blood Pressure [Ri ght Upper Arm] Pulse Oximetry 95 94 94 04/12/22 07:00 Temperature 97.8 F Pulse Rate Pulse Rate [Right Pulse Oximeter] 67 Pulse Rate [Right Radial] Respiratory Rate 24 Blood Pressure Blood Pressure [Ri ght Arm] 168/70 H Blood Pressure [Ri ght Upper Arm] Pulse Oximetry 94 Labs Labs: Laboratory Results - last 24 hr 04/11/22 04/11/22 04/11/22 00:26 11:47 11:47 WBC 12.67 H RBC 4.99 Hgb 15.1 Hct 45.8 MCV 92 MCH 30 MCHC 33 RDW Coeff of Jhonny 13.9 Plt Count 192 Neut % (Auto) 83.2 H Lymph % (Auto) 8.3 L [place] % (Auto) 7.9 Eos % (Auto) 0.2 Baso % (Auto) 0.2 Neut # (Auto) 10.50 H Lymph # (Auto) 1.10 [place] # (Auto) 1.00 H Eos # (Auto) 0.00 Baso # (Auto) 0.00 Abs Immat Gran (auto) 0.02 Sodium 139 Potassium 4.1 Chloride 104 Carbon Dioxide 26 BUN 21 Creatinine 1.1 Estimated Creat Clear 62.55 Glucose 136 H Lactate Calcium 8.8 Total Bilirubin 0.7 Direct Bilirubin AST 33 ALT 29 Alkaline Phosphatase 53 Troponin I C-Reactive Protein 3.4 H Total Protein 6.9 Albumin 4.2 Lipase 3457 H Urine Color Urine Appearance Urine pH Ur Specific Hood Urine Protein Urine Glucose (UA) Urine Ketones Urine Blood Urine Nitrite Urine Bilirubin Urine Urobilinogen Ur Leukocyte Esterase Urine RBC Urine WBC Ur Squamous Epith Cells Urine Bacteria SARS-CoV-2 (PCR) POC Glucose 04/11/22 04/11/22 04/11/22 12:40 15:25 17:50 WBC RBC Hgb Hct MCV MCH MCHC RDW Coeff of Jhonny Plt Count Neut % (Auto) Lymph % (Auto) [place] % (Auto) Eos % (Auto) Baso % (Auto) Neut # (Auto) Lymph # (Auto) [place] # (Auto) Eos # (Auto) Baso # (Auto) Abs Immat Gran (auto) Sodium Potassium Chloride Carbon Dioxide BUN Creatinine Estimated Creat Clear Glucose Lactate Calcium Total Bilirubin Direct Bilirubin AST ALT Alkaline Phosphatase Troponin I C-Reactive Protein Total Protein Albumin Lipase Urine Color Yellow Urine Appearance Clear Urine pH 5.5 Ur Specific Hood >= 1.030 Urine Protein 1+ A Urine Glucose (UA) Negative Urine Ketones Negative Urine Blood Negative Urine Nitrite Negative Urine Bilirubin Negative Urine Urobilinogen 0.2 Ur Leukocyte Esterase Negative Urine RBC 0-2 Urine WBC 0-2 Ur Squamous Epith Cells None Urine Bacteria None SARS-CoV-2 (PCR) Negative SARS-CoV-2 POC Glucose 149 H 04/11/22 04/11/22 04/11/22 20:00 20:05 20:05 WBC RBC Hgb Hct MCV MCH MCHC RDW Coeff of Jhonny Plt Count Neut % (Auto) Lymph % (Auto) [place] % (Auto) Eos % (Auto) Baso % (Auto) Neut # (Auto) Lymph # (Auto) [place] # (Auto) Eos # (Auto) Baso # (Auto) Abs Immat Gran (auto) Sodium Potassium Chloride Carbon Dioxide BUN Creatinine Estimated Creat Clear Glucose Lactate 1.4 Calcium Total Bilirubin Direct Bilirubin AST ALT Alkaline Phosphatase Troponin I 0.02 C-Reactive Protein Total Protein Albumin Lipase Urine Color Urine Appearance Urine pH Ur Specific Hood Urine Protein Urine Glucose (UA) Urine Ketones Urine Blood Urine Nitrite Urine Bilirubin Urine Urobilinogen Ur Leukocyte Esterase Urine RBC Urine WBC Ur Squamous Epith Cells Urine Bacteria SARS-CoV-2 (PCR) POC Glucose 99 04/12/22 04/12/22 06:44 06:44 WBC 13.83 H RBC 4.39 Hgb 13.4 L Hct 40.9 MCV 93 MCH 31 MCHC 33 RDW Coeff of Jhonny 13.9 Plt Count 158 Neut % (Auto) 81.1 H Lymph % (Auto) 7.7 L [place] % (Auto) 10.3 Eos % (Auto) 0.5 Baso % (Auto) 0.1 Neut # (Auto) 11.20 H Lymph # (Auto) 1.10 [place] # (Auto) 1.40 H Eos # (Auto) 0.10 Baso # (Auto) 0.00 Abs Immat Gran (auto) 0.04 Sodium 138 Potassium 3.8 Chloride 105 Carbon Dioxide 28 BUN 16 Creatinine 1.1 Estimated Creat Clear 62.55 Glucose 106 Lactate Calcium 7.8 L Total Bilirubin 1.0 Direct Bilirubin 0.4 AST 27 ALT 19 Alkaline Phosphatase 44 Troponin I < 0.01 L C-Reactive Protein Total Protein 6.0 Albumin 3.4 Lipase 794 H Urine Color Urine Appearance Urine pH Ur Specific Hood Urine Protein Urine Glucose (UA) Urine Ketones Urine Blood Urine Nitrite Urine Bilirubin Urine Urobilinogen Ur Leukocyte Esterase Urine RBC Urine WBC Ur Squamous Epith Cells Urine Bacteria SARS-CoV-2 (PCR) POC Glucose
--- NOTE | 2022-04-12 10:13 | CRLHL7_ITS ---
For Patients: As a result of the Cures Act, medical imaging exams and procedure reports are released immediately into your electronic medical record. You may view this report before your referring provider. If you have questions, please contact your health care provider. INDICATION: Hypoxia TECHNIQUE: Chest 1 view COMPARISON: 05/07/2020 FINDINGS: Cardiac silhouette is enlarged. Tortuosity of the aorta and vascular calcifications. Postop changes median sternotomy. No pneumothorax. Postop changes left shoulder replacement. Dependent atelectasis in both lung bases with trace pleural effusions. IMPRESSION: Bibasilar atelectasis and trace effusions. Dictated by Chris Vargas MD @ 04/12/2022 11:29:49 AM (Electronically Signed)
[2022-04-12] MEDS: OXYCODONE 5 MG TABLET PO (10:20)
--- NOTE | 2022-04-12 11:06 | PM.GSPN ---
Progress Note: A&P Assessment and plan (1) Chronic anticoagulation: Status: Acute (2) Gallstone pancreatitis: Status: Acute (3) Diabetes mellitus: Problem details: metformin monotherapy Status: Acute (4) Coronary artery disease: Problem details: h/o of [place] 1994 2008: Restenoses of stent of LM/lad. Severe circumflex disease. Stenosis of RCA. NENO x1 to the proximal RCA, EF at that time 55% 1995 CABG: Lutz to D2, SVG to OM1; corroborating angiogram status post stent to proximal LAD, 95% D1 and 90% PDA left untreated 1999: Stent to proximal LAD, left main 2001: stent to RCA Status: Acute (5) Hyperlipidemia: Status: Acute (6) CKD (chronic kidney disease) stage 3, GFR 30-59 ml/min: Status: Acute Plan The patient is a 76-year-old male with likely cholecystitis and gallstone pancreatitis. fortunately his lipase is down today which indicates that likely he passed a stone. His white count remains elevated and he has significant pain. Explained to the patient that given the degree of inflammation in the abdomen we would 1) want to see his pain improved/ resolve and 2) we will want to wait until his Eliquis is metabolized. Given his near normal kidney function 3 days should be adequate. his situation may be somewhat difficult because if he has a degree of cholecystitis his pain may not improve therefore, we will have to wait for LFTs to normalize. If he worsens then he will need MRCP. Overall this is somewhat high risk given his clinical state and medical comorbidities. I have asked Dr. Masters to evaluate the patient from a cardiopulmonary standpoint to evaluate his fitness for surgery. Subjective Subjective Interval history: Patient states his pain is about the same today. No nausea. He did have a regular diet ordered which we changed this morning. He is afebrile. No vomiting. Exam Const: Vital Signs, click to edit/add: Vital Signs - 24 hr 04/11/22 14:30 04/11/22 15:30 04/11/22 16:01 Temperature 97.2 F L Pulse Rate Pulse Rate [Right Pulse Oximeter] 62 Pulse Rate [Right Radial] 63 61 Respiratory Rate 16 14 20 Blood Pressure Blood Pressure [Ri ght Arm] 187/73 H Blood Pressure [Ri ght Upper Arm] 183/84 H 177/81 H Pulse Oximetry 93 94 92 04/11/22 16:48 04/11/22 17:06 04/11/22 17:29 Temperature 98.0 F 97.2 F L Pulse Rate 63 Pulse Rate [Right Pulse Oximeter] 62 Pulse Rate [Right Radial] Respiratory Rate 14 20 Blood Pressure 177/81 H Blood Pressure [Ri ght Arm] 187/73 H Blood Pressure [Ri ght Upper Arm] Pulse Oximetry 92 92 04/11/22 20:23 04/11/22 20:53 04/11/22 21:18 Temperature 99.5 F 99.5 F Pulse Rate Pulse Rate [Right Pulse Oximeter] 73 Pulse Rate [Right Radial] Respiratory Rate 16 Blood Pressure Blood Pressure [Ri ght Arm] 177/106 H Blood Pressure [Ri ght Upper Arm] Pulse Oximetry 86 L 95 04/11/22 23:24 04/12/22 03:48 04/12/22 07:00 Temperature 97.7 F 98.1 F 97.8 F Pulse Rate Pulse Rate [Right Pulse Oximeter] 66 69 67 Pulse Rate [Right Radial] Respiratory Rate 20 24 24 Blood Pressure Blood Pressure [Ri ght Arm] 132/46 L 165/75 H 168/70 H Blood Pressure [Ri ght Upper Arm] Pulse Oximetry 94 94 94 04/12/22 09:00 04/12/22 10:33 Temperature Pulse Rate 68 Pulse Rate [Right Pulse Oximeter] Pulse Rate [Right Radial] Respiratory Rate 24 Blood Pressure Blood Pressure [Ri ght Arm] Blood Pressure [Ri ght Upper Arm] Pulse Oximetry 93 Documenting provider has reviewed patient's vital signs: yes Common normals: no apparent distress Resp: Other: breathing is nonlabored on 1 L nasal cannula Cardio: Common normals: regular rate Rate: regular rate GI: Other: Patient's abdomen is somewhat distended and quite tender diffusely.
[2022-04-12 12:12] LABS: HCO3 VBG 27 mmol/L (21-28); PCO2 VBG 47 mmHG (40-50); pH VBG 7.374 (7.32-7.43)
[2022-04-12] MEDS: METOPROLOL TARTRATE 1 MG/ML inj 5 MG IVP ×2 (12:14→22:26)
[2022-04-12 12:37] LABS: INR 1.25 (0.91-1.10); Prothrombin Time 16.1 Seconds
[2022-04-12 12:39] LABS: Gamma Glutamyl Transpeptidase* 49 U/L (8-55)
[2022-04-12 12:40] LABS: Magnesium* 1.2 mg/dL (1.5-2.6); Uric Acid* 2.9 mg/dL (2.2-8.4)
[2022-04-12 12:49] LABS: NT Pro B Type NatriureticPept* 1100 PG/mL (0-450)
[2022-04-12 12:57] LABS: Procalcitonin* 0.11 ng/mL (<0.50)
[2022-04-12 13:48] LABS: Hemoglobin A1C* 5.93 % (0-5.6)
[2022-04-12] MEDS: FUROSEMIDE 10 MG/ML inj 20 MG IV (13:55)
--- NOTE | 2022-04-12 15:23 | PC.NURSE ---
07-1350: Pt. up w/SBA in room. No nausea/emesis. Rating abdominal pain 0-7/10, alleviated w/PRN medication. Belly tender and hypoactive bowel sounds. Voiding adequately. Tolerated clear liquid diet this shift; EKG, new labs and CXR completed. ECHO scheduled for this afternoon. Pt. afebrile, notes feeling rough, but better than last night. Poor cap refill in toe/fingernails >4 seconds. informed- cardiac assessments initiated. Taking meds w/out issues. HR regular w/occasional PVCs. Hx of A-fib, currently holding Eliquis in prep for surgery sometime tomorrow, per Dr. Brothers. BGs 105, and 161 (afer meal). Did not administer sliding scale Novolog as pt. had already eaten. requiring 1L O2 via NC to maintain sats >90%. O2 mid-upper 80s on room air. Reported to GORGE Bajwa @ [id number].
[2022-04-12] MEDS: MAGNESIUM IV 4 GM/100 ML PIGGYBACK IVPB (16:13)
--- NOTE | 2022-04-12 18:32 | PC.NURSE ---
Pt. tolerating sips of clear liquids. Bowel sounds hypoactive. Pt. reported no change in pain after receiving Dilaudid 0.5mg IV - Dr. Grimaldo notified - Dilaudid dose increased - pt. reported good relief and was able to sleep after receiving Dilaudid 1mg IV.
[2022-04-13] VITALS (21 sets, daily range): BP systolic 132–188; BP diastolic 54–82; PULSE 52–78; RESP 16–28; TEMP 36.3–36.7; O2SAT 89–95
[2022-04-13] MEDS: HYDROmorphone 0.5 mg/0.5 ml inj IVP ×4 (00:31→12:39)
[2022-04-13] MEDS: LACTATED RINGERS 1000 ML 1,000 ML 125 ML IV ×3 (00:31→16:46)
[2022-04-13] MEDS: PIPERACILLIN/TAZOBACTAM 4.5 GM in 0.9 % SODIUM CHLORIDE Mini-bag 100 ML IVPB ×2 (02:12→10:13)
[2022-04-13] MEDS: METOPROLOL TARTRATE 1 MG/ML inj 5 MG IVP ×2 (04:30→10:37)
--- NOTE | 2022-04-13 05:19 | PC.NURSE ---
Shift note 19-: Pt up ad jazmín in room, rating Abd pain 2-6/10 utilizing PRN Dilaudid approximately Q4h. NPO after MN for MRCP and poss lap lacy.
[2022-04-13 07:30] LABS: Basophils Percent Auto 0.1 % (0.0-3.0); Eosinophils Percent Auto 0.5 % (0.0-7.0); Hematocrit 42.1 % (37.0-53.0); Hemoglobin* 13.9 gm/dL (13.5-17.5); Immature Granulocytes Abs Auto 0.11 K/uL (0.00-0.30); Lymphocytes Percent Auto 7.6 % (20-44); Mean Corpuscular HGB Conc 33 gm/dL (32-36); Mean Corpuscular Hemoglobin 31 pg (26-34); Mean Corpuscular Volume 92 fL (80-100); Monocytes Percent Auto 9.7 % (0.0-11.0); Neutrophils Percent Auto 81.4 % (42.0-72.0); Platelet Count* 159 K/uL (140-440); RDW Coefficient of Variation % 13.9 % (11.5-15.5); Red Blood Count 4.56 m/uL (4.30-5.90); White Blood Count* 15.08 K/uL (4.50-11.00)
[2022-04-13 07:33] LABS: Slide Review Reflex No
[2022-04-13 07:48] LABS: HCO3 VBG 29 mmol/L (21-28); PCO2 VBG 48 mmHG (40-50); PO2 VBG 33.4 mmHG (25-47); pH VBG 7.386 (7.32-7.43)
[2022-04-13 07:56] LABS: INR 1.24 (0.91-1.10)
--- NOTE | 2022-04-13 08:00 | CRLHL7_ITS ---
For Patients: As a result of the Cures Act, medical imaging exams and procedure reports are released immediately into your electronic medical record. You may view this report before your referring provider. If you have questions, please contact your health care provider. INDICATION: Abdominal pain. COMPARISON: Ultrasound examination of the right upper quadrant of the abdomen April 11, 2022; CT abdomen and pelvis with intravenous contrast April 11, 2022. Technique: MRCP. FINDINGS: Evidence of cholelithiasis. Small amount of pericholecystic fluid as well as tiny amount of abdominal ascites. No evidence of choledocholithiasis. Peripancreatic inflammatory changes secondary to acute pancreatitis. No other abnormalities are identified. IMPRESSION: 1. Cholelithiasis with pericholecystic fluid as well as small amount of abdominal ascites; rule out acute cholecystitis. 2. No evidence of choledocholithiasis. 3. Peripancreatic inflammatory changes secondary to acute pancreatitis. 4. Small right-sided pleural effusion. Dictated by Allison Christy MD @ 04/13/2022 1:45:22 PM (Electronically Signed)
[2022-04-13 08:04] LABS: Albumin* 3.5 g/dL (3.3-5.0); Chloride* 101 mmol/L (96-114); Potassium* 4.1 mmol/L (3.6-5.1); Sodium* 135 mmol/L (135-149)
[2022-04-13 08:06] LABS: Bilirubin Total* 1.3 mg/dL (0.1-1.5); Estimated Glomerular Filt Rate 77.04
[2022-04-13 08:07] LABS: Alanine Aminotransferase* 16 U/L (4-50); Alkaline Phosphatase* 55 U/L (40-150); Aspartate Amino Transferase* 23 U/L (12-35); Blood Urea Nitrogen* 13 mg/dL (7-30); Carbon Dioxide* 28 mmol/L (20-32); Gamma Glutamyl Transpeptidase* 56 U/L (8-55); Glucose* 111 mg/dL (60-115); Lipase* 105 U/L (23-300); Total Protein* 6.3 g/dL (6.0-8.3)
[2022-04-13 08:08] LABS: Calcium* 7.7 mg/dL (8.4-10.6); Magnesium* 1.8 mg/dL (1.5-2.6)
[2022-04-13 08:16] LABS: NT Pro B Type NatriureticPept* 948 PG/mL (0-450)
[2022-04-13 08:19] LABS: Troponin I* 0.01 ng/mL (0.01-0.04)
[2022-04-13 09:01] LABS: C Reactive Protein* 27.1 mg/dL (0.5-1.0)
[2022-04-13] MEDS: LOSARTAN POTASSIUM 50 MG TABLET 100 MG PO (10:17)
[2022-04-13] MEDS: allopurinoL 300 MG TABLET PO (10:17)
[2022-04-13] MEDS: MAGNESIUM OXIDE 400 MG TABLET PO (10:18)
[2022-04-13] MEDS: atenoloL 50 MG TABLET 100 MG PO (10:18)
[2022-04-13] MEDS: PANTOPRAZOLE SODIUM 40 MG INJ IVP (10:18)
[2022-04-13] MEDS: SODIUM CHLORIDE 0.9 % (FLUSH) 10 ML SYRINGE 5 ML IVF (10:19)
--- NOTE | 2022-04-13 10:28 | PM.GSPN ---
Progress Note: A&P Assessment and plan (1) Gallstone pancreatitis: Status: Acute (2) Acute respiratory failure with hypoxia: Status: Acute (3) Coronary artery disease: Problem details: h/o of [place] 1994 1995 CABG: Lutz to D2, SVG to OM1; corroborating angiogram status post stent to proximal LAD, 95% D1 and 90% PDA left untreated 1999: Stent to proximal LAD, left main 2001: stent to RCA 2008: Restenoses of stent of LM/lad. Severe circumflex disease. Stenosis of RCA. NENO x1 to the proximal RCA, EF at that time 55% 02/2014 Stented coronary artery multivessel - [place] was last provider for cardiology Status: Acute (4) CKD (chronic kidney disease) stage 3, GFR 30-59 ml/min: Status: Acute (5) Paroxysmal atrial fibrillation: Status: Acute (6) Hypertension: Status: Acute (7) Chronic anticoagulation: Problem details: Paroxysmal AFib Status: Acute (8) Diabetes mellitus: Problem details: metformin monotherapy Status: Acute (9) Hyperlipidemia: Status: Acute Plan The patient is a 76-year-old male with likely gallstone pancreatitis and cholecystitis. He is doing better overall from a respiratory and pain standpoint and his enzyme levels have returned to normal. His white count is however continued to be elevated. I expect he has severe cholecystitis. Because of his significant pain yesterday we decided to obtain an MRCP to ensure that there is no common bile duct stone and also make sure that there are no pancreatic collections leading to his increasing white count. That is scheduled for today. If this does not show any of the 2 above concerns, then we will plan on cholecystectomy today since he has been over 48 hours without Eliquis and my review literature states that 48 hours for procedures with high risk of bleeding is appropriate. I discussed the procedure, risks, benefits and recovery with the patient and his . They agreed to proceed. Addendum: MRI reviewed with radiologist. Patient has gallstones and probable cholecystitis, no common bile duct stones and subtle pancreatitis changes. Because his pain is improved and his lipase has returned to normal, we will plan on cholecystectomy today. Subjective Subjective Interval history: Bimal is doing better today. Pain is better overall. No nausea. Had an episode of pain and tachypnea but this resolved with pain meds. He is stably on 1 L NC Exam Narrative: Exam Narrative: Gen: NAD Resp: BReathing nonlabored on 1 L NC CV: RRR Abd: Soft, minimally tender. Const: Vital Signs, click to edit/add: Vital Signs - 24 hr 04/12/22 10:33 04/12/22 11:00 04/12/22 14:51 Temperature 99.0 F Pulse Rate Pulse Rate [Right Pulse Oximeter] 68 Respiratory Rate 24 24 Blood Pressure [Ri ght Arm] 132/62 161/56 H Pulse Oximetry 93 93 94 04/12/22 16:19 04/12/22 19:45 04/12/22 23:00 Temperature 99.3 F 98.6 F Pulse Rate 77 82 Pulse Rate [Right Pulse Oximeter] 77 80 Respiratory Rate 20 20 Blood Pressure [Ri ght Arm] 181/83 H 156/59 H Pulse Oximetry 92 91 04/13/22 04:41 04/13/22 08:40 Temperature 97.5 F L Pulse Rate 76 Pulse Rate [Right Pulse Oximeter] 78 Respiratory Rate 20 Blood Pressure [Ri ght Arm] 182/77 H Pulse Oximetry 91
[2022-04-13] MEDS: OMEPRAZOLE 20 MG CAPSULE DR PO (10:37)
[2022-04-13 11:04] LABS: C Reactive Protein* 13.5 mg/dL (0.5-1.0)
[2022-04-13] MEDS: LACTATED RINGERS 1000 ML 1,000 ML 100 ML IV (14:00)
--- NOTE | 2022-04-13 14:02 | PC.NURSE ---
shift 0715-4002 pt laying bed start of shift, HOB elevated 30 degrees, nasal cannula running 1L/min, O2 sat at 92%. Alert and oriented. Pt c/o of severe low back pain, rate pain 7-8/10. Abdomen pain at 6/10. Dialudid 1mg IVP given and pt stated he feels much better BP 188/71 at 0730, bilateral leg edema noted. Pitting in the feet, trace pitting in lower extremities. U/o frequent, low output at 75-125ml, dark naseem. Hospitalist on unit notified, no action ordered. Encouraged to get out of bed and sit or stand for short periods, use IS to increase lung expansion. Pt was seen using IS infrequently and sat at edge of bed for 10 min during partial bed bath and gown change. IV in Right AC intact and patent, running 125ml LR. DC'd Tele monitoring. MRCP completed. Transferred to OR at 1400 for laproscopic choley.
[2022-04-13] MEDS: PIPERACILLIN/TAZOBACTAM 3.375 GM INJ IVP (14:10)
[2022-04-13] MEDS: BUPIVACAINE 0.25% 30 ML INJECTION (14:30)
--- NOTE | 2022-04-13 15:59 | W.ANESCHARGE ---
Anesthesia Charges Start Date/Time Anesthesia Start Date: 04/13/22 Anesthesia Start Time: 13:58 Stop Date/Time Anesthesia Stop Date: 04/13/22 Anesthesia Stop Time: 15:57 Summary Emergency: No Extremes of Age: Over 68-CPT [id number]
--- NOTE | 2022-04-13 16:09 | PM.GSPRC ---
Operative Note Date of procedure: 04/13/22 Type of Procedure: Laparoscopic cholecystectomy Procedure Description: After discussing the risks and benefits of the procedure, the patient signed informed consent.? The operative site was marked and the patient was brought to the operating room and placed on the operating table in supine position.? Care was taken to pad the patient's pressure points.?? The patient was then [intubated/given sedation] by anesthesia.?? The operative site was then prepped and draped in the usual sterile fashion.? A time-out was then performed. Entrance to the abdomen was gained via a 5 mm Visiport in the left upper quadrant. The abdomen was insufflated and briefly surveyed for signs of injury. There was none. A 10 mm supraumbilical port was placed as well as 2 working ports along the right costal margin, all under direct vision. The patient was then placed in reverse Trendelenburg position with the right side up. There was ascites noted in the abdomen. The gallbladder was tense. A needle was used to aspirate the gallbladder. Green bile without signs of purulence returned. Tgallbladder fundus was grasped and retracted cephalad. The infundibulum was grasped. A combination of hook cautery and blunt dissection was used to carefully dissect out the cystic duct and artery until they could clearly be seen entering the gallbladder without any intervening structures. The gallbladder was dissected off the cystic plate to achieve the critical view. Once this was achieved the cystic artery was clipped with 2 clips proximally and 1 clip distally and transected with the scissors. The cystic duct was found to be impacted with stones. Carefully I milked the stones back into the gallbladder attempting to avoid pushing them forward into the common bile duct. Because of the size of the cystic duct I elected to ligate it with an endoloop. I transected the cystic duct at the junction with the gallbladder neck with a scissor. Small stones continued to spill from the distal aspect. Once the cystic duct stump was cleared of stones, a Vicryl as well as PDS endoloop was used to ligate the cystic duct stump. The gallbladder was then taken off of the liver bed and removed from the abdomen using an Endo-Catch bag. The gallbladder bed was surveyed for hemostasis which appeared adequate. A small amount of bile and stones which had spilled were suctioned or removed from the abdomen. The remaining ports were then removed and the abdomen desufflated. The umbilical port fascia was closed with 0 Vicryl. The skin was closed with absorbable subcuticular suture. Sterile dressings were then applied. Instrument sponge and needle counts were correct at the end of the case. The patient was then woken and transferred to the PACU in stable condition. The patient tolerated the procedure well. Findings: Cholecystitis with stones impacting the cystic duct. Ascites. Anesthesia: GETA Surgeon: Lily Brothers MD Estimated blood loss (mL): 15 Condition: stable Disposition: PACU
--- NOTE | 2022-04-13 17:18 | P.IMPN_ITS ---
Progress Note: A&P Assessment and plan (1) Gallstone pancreatitis: Status: Acute Assessment and Plan: To OR today. Continue with analgesics and antiemetics for now. (2) Acute respiratory failure with hypoxia: Status: Acute Assessment and Plan: Continue supportive efforts. Encourage patient to be more physically active to address the atelectatic changes that I am finding on exam. (3) Coronary artery disease: Problem details: h/o of [place] 1994 1995 CABG: Lutz to D2, SVG to OM1; corroborating angiogram status post stent to proximal LAD, 95% D1 and 90% PDA left untreated 1999: Stent to proximal LAD, left main 2001: stent to RCA 2008: Restenoses of stent of LM/lad. Severe circumflex disease. Stenosis of RCA. NENO x1 to the proximal RCA, EF at that time 55% 02/2014 Stented coronary artery multivessel - [place] was last provider for cardiology Status: Acute (4) CKD (chronic kidney disease) stage 3, GFR 30-59 ml/min: Status: Acute Assessment and Plan: Continue with IV fluids for now. (5) Paroxysmal atrial fibrillation: Status: Acute Assessment and Plan: Stable at this time. (6) Hypertension: Status: Acute (7) Chronic anticoagulation: Problem details: Paroxysmal AFib Status: Acute Assessment and Plan: Continue to hold his apixaban. (8) Diabetes mellitus: Problem details: metformin monotherapy Status: Acute (9) Hyperlipidemia: Status: Acute Plan Reviewed with Dr. Brothers. Reviewed with patient and . Answered their questions. Time Spent With Patient Total time spent: 30 minutes Subjective Interval history: Hospital day 3. Abdominal pain temporarily improved with analgesics and worse when analgesics wear off. Overall his condition is not improved from yesterday. Exam Narrative: Exam Narrative: Appears ill. Uncomfortable. Awake. Alert and oriented to person, place, time, situation. Cooperative. Mood and affect are congruent. Lungs for the most part are clear to auscultation save some very fine end inspiratory rales both bases consistent with atelectatic changes. Heart tones with regular rhythm, normal S1-S2. Abdomen with occasional bowel sounds. Mildly distended. Subjective discomfort to palpation in the periumbilical area. No rebound or guarding when I examine him after analgesics. Trace edema bilateral lower extremities. Hard of hearing otherwise cranial nerves 3-12 grossly intact. Moves all 4 extr emities. No tremor, asterixis, or ataxia. Independent with transfer, station, gait. Skin is dry and intact. No jaundice or icterus. No petechiae. No rashes. No cyanosis. Const: Vital Signs, click to edit/add: Vital Signs - 24 hr 04/12/22 19:45 04/12/22 23:00 04/13/22 04:41 Temperature 99.3 F 98.6 F 97.5 F L Pulse Rate 82 Pulse Rate [Right Pulse Oximeter] 77 80 78 Respiratory Rate 20 20 20 Blood Pressure Blood Pressure [Ri ght Arm] 181/83 H 156/59 H 182/77 H Pulse Oximetry 92 91 91 04/13/22 07:00 04/13/22 08:00 04/13/22 08:40 Temperature 98.1 F Pulse Rate 76 Pulse Rate [Right Pulse Oximeter] 76 76 Respiratory Rate 28 H 28 H Blood Pressure Blood Pressure [Ri ght Arm] 188/77 H Pulse Oximetry 92 92 04/13/22 12:00 04/13/22 15:52 04/13/22 15:55 Temperature 97.8 F 97.3 F L Pulse Rate 64 60 Pulse Rate [Right Pulse Oximeter] 68 Respiratory Rate 20 18 18 Blood Pressure 144/64 H 142/62 H Blood Pressure [Ri ght Arm] 177/82 H Pulse Oximetry 91 93 93 04/13/22 16:00 04/13/22 16:05 04/13/22 16:10 Temperature Pulse Rate 64 58 L 60 Pulse Rate [Right Pulse Oximeter] Respiratory Rate 18 16 16 Blood Pressure 146/62 H 143/65 H 148/63 H Blood Pressure [Ri ght Arm] Pulse Oximetry 93 93 93 04/13/22 16:15 04/13/22 16:20 04/13/22 16:30 Temperature 97.3 F L Pulse Rate 59 L 59 L 55 L Pulse Rate [Right Pulse Oximeter] 55 L Respiratory Rate 16 16 16 Blood Pressure 146/67 H 145/66 H Blood Pressure [Ri ght Arm] 153/62 H Pulse Oximetry 93 92 89 04/13/22 17:15 04/13/22 17:16 Temperature Pulse Rate Pulse Rate [Right Pulse Oximeter] 53 L 54 L Respiratory Rate 16 16 Blood Pressure Blood Pressure [Ri ght Arm] 155/63 H 156/61 H Pulse Oximetry 91 91 Labs Labs: Laboratory Results - last 24 hr 04/12/22 04/13/22 04/13/22 06:44 07:15 07:15 WBC 15.08 H RBC 4.56 Hgb 13.9 Hct 42.1 MCV 92 MCH 31 MCHC 33 RDW Coeff of Jhonny 13.9 Plt Count 159 Neut % (Auto) 81.4 H Lymph % (Auto) 7.6 L [place] % (Auto) 9.7 Eos % (Auto) 0.5 Baso % (Auto) 0.1 Neut # (Auto) 12.30 H Lymph # (Auto) 1.10 [place] # (Auto) 1.50 H Eos # (Auto) 0.10 Baso # (Auto) 0.00 Abs Immat Gran (auto) 0.11 INR 1.24 H VBG pH VBG pCO2 VBG pO2 VBG HCO3 Sodium Potassium Chloride Carbon Dioxide BUN Creatinine Estimated Creat Clear Glucose Calcium Magnesium Total Bilirubin GGT AST ALT Alkaline Phosphatase Troponin I C-Reactive Protein 13.5 H NT-Pro-B Natriuret Pep Total Protein Albumin Lipase 04/13/22 04/13/22 07:15 07:15 WBC RBC Hgb Hct MCV MCH MCHC RDW Coeff of Jhonny Plt Count Neut % (Auto) Lymph % (Auto) [place] % (Auto) Eos % (Auto) Baso % (Auto) Neut # (Auto) Lymph # (Auto) [place] # (Auto) Eos # (Auto) Baso # (Auto) Abs Immat Gran (auto) INR VBG pH 7.386 VBG pCO2 48 VBG pO2 33.4 VBG HCO3 29 H Sodium 135 Potassium 4.1 Chloride 101 Carbon Dioxide 28 BUN 13 Creatinine 1.0 Estimated Creat Clear 68.80 Glucose 111 Calcium 7.7 L Magnesium 1.8 Total Bilirubin 1.3 GGT 56 H AST 23 ALT 16 Alkaline Phosphatase 55 Troponin I 0.01 C-Reactive Protein 27.1 H NT-Pro-B Natriuret Pep 948 H Total Protein 6.3 Albumin 3.5 Lipase 105
--- NOTE | 2022-04-13 22:26 | PC.NURSE ---
Addendum entered by Annelise Cabrales RN 04/13/22 22:34: Patient is weaned down to 1.5L O2 via NC while awake to keep saturations >90%. Original Note: Shift [id number]- Patient arrives from PACU at approximately 1630. He is sleepy, but rousable for a few hours after arrival. He also requires 5L O2 via oxymask to keep saturations >90%. This evening he wakes, uses bathroom and sits in chair. He is tolerating clear liquid diet without issue. He denies pain throughout shift. He is encouraged to use bathroom rather than urinal in bed to increase movement. He is reluctant, but agreeable after education. IS use also encouraged, which he was noted to do independently.
[2022-04-14] VITALS (7 sets, daily range): BP systolic 158–177; BP diastolic 67–82; PULSE 52–62; RESP 18; TEMP 36.1–36.9; O2SAT 91–93
[2022-04-14] MEDS: LACTATED RINGERS 1000 ML 1,000 ML 125 ML IV (00:36)
[2022-04-14] MEDS: METOPROLOL TARTRATE 1 MG/ML inj 5 MG IVP (04:52)
--- NOTE | 2022-04-14 06:18 | PC.NURSE ---
patient up with SBA, steady gait, pain well controlled. patient on RA entire overnight with sats above 90%. tolerating clear diet with no nausea, denies passing flatus yet.
[2022-04-14 07:10] LABS: HCO3 VBG 25 mmol/L (21-28); PCO2 VBG 41 mmHG (40-50); pH VBG 7.401 (7.32-7.43)
[2022-04-14 07:21] LABS: Basophils Percent Auto 0.1 % (0.0-3.0); Hematocrit 39.6 % (37.0-53.0); Immature Granulocytes Abs Auto 0.04 K/uL (0.00-0.30); Lymphocytes Percent Auto 4.8 % (20-44); Mean Corpuscular HGB Conc 33 gm/dL (32-36); Mean Corpuscular Hemoglobin 30 pg (26-34); Mean Corpuscular Volume 92 fL (80-100); Neutrophils Percent Auto 88.8 % (42.0-72.0); Platelet Count* 179 K/uL (140-440); RDW Coefficient of Variation % 13.7 % (11.5-15.5); Red Blood Count 4.29 m/uL (4.30-5.90); White Blood Count* 15.76 K/uL (4.50-11.00)
[2022-04-14 07:23] LABS: Slide Review Reflex No
[2022-04-14 07:31] LABS: Albumin* 3.3 g/dL (3.3-5.0); Chloride* 105 mmol/L (96-114); Potassium* 4.1 mmol/L (3.6-5.1); Sodium* 133 mmol/L (135-149)
[2022-04-14 07:33] LABS: Creatinine* 0.9 mg/dL (0.5-1.5); Estimated Glomerular Filt Rate 87.42
[2022-04-14 07:34] LABS: Alkaline Phosphatase* 59 U/L (40-150); Aspartate Amino Transferase* 37 U/L (12-35); Bilirubin Direct* 0.5 mg/dL (0.0-0.5); Bilirubin Total* 0.8 mg/dL (0.1-1.5); Blood Urea Nitrogen* 17 mg/dL (7-30); Carbon Dioxide* 24 mmol/L (20-32); Glucose* 153 mg/dL (60-115); Lipase* 70 U/L (23-300); Total Protein* 6.3 g/dL (6.0-8.3)
[2022-04-14 07:35] LABS: Alanine Aminotransferase* 30 U/L (4-50); Calcium* 7.8 mg/dL (8.4-10.6)
[2022-04-14 07:50] LABS: C Reactive Protein* 26.8 mg/dL (0.5-1.0)
[2022-04-14] MEDS: allopurinoL 300 MG TABLET PO (09:14)
[2022-04-14] MEDS: MAGNESIUM OXIDE 400 MG TABLET PO (09:14)
[2022-04-14] MEDS: atenoloL 50 MG TABLET 100 MG PO (09:14)
[2022-04-14] MEDS: OMEPRAZOLE 20 MG CAPSULE DR PO (09:14)
[2022-04-14] MEDS: LOSARTAN POTASSIUM 50 MG TABLET 100 MG PO (09:14)
[2022-04-14] MEDS: SODIUM CHLORIDE 0.9 % (FLUSH) 10 ML SYRINGE 5 ML IVF (09:15)
[2022-04-14] MEDS: OXYCODONE 5 MG TABLET PO (09:35)
[2022-04-14] MEDS: ACETAMINOPHEN 325 MG TABLET 650 MG PO (09:35)
--- NOTE | 2022-04-14 11:13 | PM.GSPN ---
Progress Note: A&P Assessment and plan (1) Gallstone pancreatitis: Status: Acute (2) CKD (chronic kidney disease) stage 3, GFR 30-59 ml/min: Status: Acute (3) Paroxysmal atrial fibrillation: Status: Acute (4) Hypertension: Status: Acute (5) Chronic anticoagulation: Problem details: Paroxysmal AFib Status: Acute (6) Diabetes mellitus: Problem details: metformin monotherapy Status: Acute (7) S/P laparoscopic cholecystectomy: Status: Acute (8) Cholecystitis: Status: Acute Plan The patient is a 76-year-old male who is postop day 1 status post laparoscopic cholecystectomy for cholecystitis and gallstone pancreatitis. He is doing well today. He does still have elevated CRP and white blood cell count however clinically he appears very well And I think he should be able to discharge home today. I do not think that there is any additional indication for antibiotics given the fact that there was no purulence noted intraoperatively. I discussed with the patient and his the discharge instructions. He can follow up with me in 2-3 weeks at the [facility] in [place]. He should resume his Eliquis starting tomorrow morning. Subjective Subjective Interval history: Bimal is feeling much better today. No nausea. Pain is well controlled. Exam Narrative: Exam Narrative: Respiratory: Breathing nonlabored on room air CV: Regular rate and rhythm abdomen: Soft, nontender, nondistended. Incisions are clean and dry with mild blood staining but no erythema. Const: Vital Signs, click to edit/add: Vital Signs - 24 hr 04/13/22 12:00 04/13/22 15:52 04/13/22 15:55 Temperature 97.8 F 97.3 F L Pulse Rate 64 60 Pulse Rate [Bilate ral Dorsalis Pedis ] Pulse Rate [Right Pulse Oximeter] 68 Respiratory Rate 20 18 18 Blood Pressure 144/64 H 142/62 H Blood Pressure [Ri ght Arm] 177/82 H Pulse Oximetry 91 93 93 04/13/22 16:00 04/13/22 16:05 04/13/22 16:10 Temperature Pulse Rate 64 58 L 60 Pulse Rate [Bilate ral Dorsalis Pedis ] Pulse Rate [Right Pulse Oximeter] Respiratory Rate 18 16 16 Blood Pressure 146/62 H 143/65 H 148/63 H Blood Pressure [Ri ght Arm] Pulse Oximetry 93 93 93 04/13/22 16:15 04/13/22 16:20 04/13/22 16:30 Temperature 97.3 F L Pulse Rate 59 L 59 L 55 L Pulse Rate [Bilate ral Dorsalis Pedis ] Pulse Rate [Right Pulse Oximeter] 55 L Respiratory Rate 16 16 16 Blood Pressure 146/67 H 145/66 H Blood Pressure [Ri ght Arm] 153/62 H Pulse Oximetry 93 92 89 04/13/22 17:15 04/13/22 17:16 04/13/22 17:30 Temperature Pulse Rate Pulse Rate [Bilate ral Dorsalis Pedis ] Pulse Rate [Right Pulse Oximeter] 53 L 54 L 55 L Respiratory Rate 16 16 18 Blood Pressure Blood Pressure [Ri ght Arm] 155/63 H 156/61 H 145/61 H Pulse Oximetry 91 91 93 04/13/22 18:00 04/13/22 18:30 04/13/22 19:30 Temperature 97.8 F Pulse Rate Pulse Rate [Bilate ral Dorsalis Pedis ] Pulse Rate [Right Pulse Oximeter] 52 L 52 L 63 Respiratory Rate 16 18 18 Blood Pressure Blood Pressure [Ri ght Arm] 157/76 H 147/63 H 152/61 H Pulse Oximetry 94 95 94 04/13/22 20:30 04/13/22 21:30 04/14/22 02:27 Temperature 97.4 F L Pulse Rate Pulse Rate [Bilate ral Dorsalis Pedis ] 61 Pulse Rate [Right Pulse Oximeter] 56 L 59 L 61 Respiratory Rate 18 18 18 Blood Pressure Blood Pressure [Ri ght Arm] 157/72 H 132/54 L 163/67 H Pulse Oximetry 94 93 93 04/14/22 04:54 04/14/22 07:00 04/14/22 09:35 Temperature 97 F L 98.2 F 98.2 F Pulse Rate Pulse Rate [Bilate ral Dorsalis Pedis ] 57 L 62 Pulse Rate [Right Pulse Oximeter] 57 L 62 Respiratory Rate 18 18 Blood Pressure Blood Pressure [Ri ght Arm] 177/80 H 165/82 H Pulse Oximetry 91 93 04/14/22 10:06 Temperature Pulse Rate Pulse Rate [Bilate ral Dorsalis Pedis ] Pulse Rate [Right Pulse Oximeter] Respiratory Rate 18 Blood Pressure Blood Pressure [Ri ght Arm] Pulse Oximetry 93
--- NOTE | 2022-04-14 12:11 | P.DS_ITS ---
DS: Providers Provider Time Seen by Provider: 12:10 Date Seen: 04/14/22 Date of admission: 04/11/22 15:40 Primary care physician: Zonia Galloway MD Admitting Clinician: Ronak Grimaldo MD Attending Physician on discharge: Ronak Grimaldo MD Date of Discharge: 04/14/22 DS: Diagnosis Discharge Diagnosis (1) S/P laparoscopic cholecystectomy: Status: Acute (2) Cholecystitis: Status: Acute (3) Gallstone pancreatitis: Status: Acute (4) Diabetes mellitus: Status: Acute Problem details: metformin monotherapy (5) Chronic anticoagulation: Status: Acute Problem details: Paroxysmal AFib (6) Paroxysmal atrial fibrillation: Status: Acute (7) Coronary artery disease: Status: Acute Problem details: h/o of [place] 1994 1995 CABG: Lutz to D2, SVG to OM1; corroborating angiogram status post stent to proximal LAD, 95% D1 and 90% PDA left untreated 1999: Stent to proximal LAD, left main 2001: stent to RCA 2008: Restenoses of stent of LM/lad. Severe circumflex disease. Stenosis of RCA. NENO x1 to the proximal RCA, EF at that time 55% 02/2014 Stented coronary artery multivessel - [place] was last provider for cardiology (8) Hypoxia: Status: Acute Problem details: on admission patient was noted to have hypoxic respiratory failure. He was requiring supplemental oxygen to maintain his O2 sats above 90%. Considerations to explain this included his acute cholecystitis with pain from breathing as well as pain medications. he had atelectasis in his right lung base consistent with decreased use of his right hemidiaphragm secondary to pain. There was a question of sleep apnea but he has had previous evaluation for that for which was reassuring. After his cholecystectomy his hypoxia resolved DS: Summary Hospital Course Hospital Course: Patient was admitted to the hospital with abdominal pain starting the day prior to admission. He had nausea vomiting anorexia. In the emergency department he was found to have cholecystitis with gallstone pancreatitis. Yesterday he was taken to the OR by Dr. Brothers where he had an uncomplicated laparoscopic cholecystectomy. Since that time he has done very well without postoperative complications. Status at Discharge Functional status at discharge: independent ambulation Overall status at discharge: patient is back to baseline Time Spent with Patient Time attestation: Total time spent providing and/or coordinating discharge services: Time spent: Greater than 30 minutes Exam Narrative: Exam Narrative: He is alert and appears in no distress. Speech is normal. He is eating a normal diet today. Respirations are clear to auscultation. No wheezing rales or rhonchi. Cardiovascular: S1, S2, regular rate and rhythm. Abdomen: Bowel sounds active. Abdomen is soft without tenderness or mass. Extremities without edema. Const: Vital Signs, click to edit/add: Vital Signs - 24 hr 04/13/22 15:52 04/13/22 15:55 04/13/22 16:00 Temperature 97.3 F L Pulse Rate 64 60 64 Pulse Rate [Bilate ral Dorsalis Pedis ] Pulse Rate [Right Pulse Oximeter] Respiratory Rate 18 18 18 Blood Pressure 144/64 H 142/62 H 146/62 H Blood Pressure [Ri ght Arm] Pulse Oximetry 93 93 93 04/13/22 16:05 04/13/22 16:10 04/13/22 16:15 Temperature Pulse Rate 58 L 60 59 L Pulse Rate [Bilate ral Dorsalis Pedis ] Pulse Rate [Right Pulse Oximeter] Respiratory Rate 16 16 16 Blood Pressure 143/65 H 148/63 H 146/67 H Blood Pressure [Ri ght Arm] Pulse Oximetry 93 93 93 04/13/22 16:20 04/13/22 16:30 04/13/22 17:15 Temperature 97.3 F L Pulse Rate 59 L 55 L Pulse Rate [Bilate ral Dorsalis Pedis ] Pulse Rate [Right Pulse Oximeter] 55 L 53 L Respiratory Rate 16 16 16 Blood Pressure 145/66 H Blood Pressure [Ri ght Arm] 153/62 H 155/63 H Pulse Oximetry 92 89 91 04/13/22 17:16 04/13/22 17:30 04/13/22 18:00 Temperature Pulse Rate Pulse Rate [Bilate ral Dorsalis Pedis ] Pulse Rate [Right Pulse Oximeter] 54 L 55 L 52 L Respiratory Rate 16 18 16 Blood Pressure Blood Pressure [Ri ght Arm] 156/61 H 145/61 H 157/76 H Pulse Oximetry 91 93 94 04/13/22 18:30 04/13/22 19:30 04/13/22 20:30 Temperature 97.8 F Pulse Rate Pulse Rate [Bilate ral Dorsalis Pedis ] Pulse Rate [Right Pulse Oximeter] 52 L 63 56 L Respiratory Rate 18 18 18 Blood Pressure Blood Pressure [Ri ght Arm] 147/63 H 152/61 H 157/72 H Pulse Oximetry 95 94 94 04/13/22 21:30 04/14/22 02:27 04/14/22 04:54 Temperature 97.4 F L 97 F L Pulse Rate Pulse Rate [Bilate ral Dorsalis Pedis ] 61 57 L Pulse Rate [Right Pulse Oximeter] 59 L 61 57 L Respiratory Rate 18 18 18 Blood Pressure Blood Pressure [Ri ght Arm] 132/54 L 163/67 H 177/80 H Pulse Oximetry 93 93 91 04/14/22 07:00 04/14/22 09:35 04/14/22 10:06 Temperature 98.2 F 98.2 F Pulse Rate Pulse Rate [Bilate ral Dorsalis Pedis ] 62 Pulse Rate [Right Pulse Oximeter] 62 Respiratory Rate 18 18 Blood Pressure Blood Pressure [Ri ght Arm] 165/82 H Pulse Oximetry 93 93 04/14/22 11:00 04/14/22 11:44 Temperature 97.8 F 98.4 F Pulse Rate Pulse Rate [Bilate ral Dorsalis Pedis ] Pulse Rate [Right Pulse Oximeter] 52 L Respiratory Rate 18 Blood Pressure Blood Pressure [Ri ght Arm] 158/77 H Pulse Oximetry 92 Documenting provider has reviewed patient's vital signs: yes DS: Data Data Completed and Pending Labs on day of discharge: Labs from last 24 hours 04/14/22 04/14/22 04/14/22 06:40 06:40 06:40 WBC 15.76 H RBC 4.29 L Hgb 13.0 L Hct 39.6 MCV 92 MCH 30 MCHC 33 RDW Coeff of Jhonny 13.7 Plt Count 179 Neut % (Auto) 88.8 H Lymph % (Auto) 4.8 L [place] % (Auto) 6.0 Eos % (Auto) 0.0 Baso % (Auto) 0.1 Neut # (Auto) 14.00 H Lymph # (Auto) 0.80 L [place] # (Auto) 0.90 Eos # (Auto) 0.00 Baso # (Auto) 0.00 Abs Immat Gran (auto) 0.04 VBG pH 7.401 VBG pCO2 41 VBG pO2 35.0 VBG HCO3 25 Sodium 133 L Potassium 4.1 Chloride 105 Carbon Dioxide 24 BUN 17 Creatinine 0.9 Estimated Creat Clear 68.80 Glucose 153 H Lactate 2.0 H Calcium 7.8 L Total Bilirubin 0.8 Direct Bilirubin 0.5 AST 37 H ALT 30 Alkaline Phosphatase 59 C-Reactive Protein 26.8 H Total Protein 6.3 Albumin 3.3 Lipase 70 Surg PTH (Off-Site) 04/13/22 15:38 WBC RBC Hgb Hct MCV MCH MCHC RDW Coeff of Jhonny Plt Count Neut % (Auto) Lymph % (Auto) [place] % (Auto) Eos % (Auto) Baso % (Auto) Neut # (Auto) Lymph # (Auto) [place] # (Auto) Eos # (Auto) Baso # (Auto) Abs Immat Gran (auto) VBG pH VBG pCO2 VBG pO2 VBG HCO3 Sodium Potassium Chloride Carbon Dioxide BUN Creatinine Estimated Creat Clear Glucose Lactate Calcium Total Bilirubin Direct Bilirubin AST ALT Alkaline Phosphatase C-Reactive Protein Total Protein Albumin Lipase Surg PTH (Off-Site) Pending Preliminary micro results at discharge 04/12/22 12:05 Blood Culture - Preliminary Blood NO GROWTH AFTER 48 HOURS 04/12/22 11:54 Blood Culture - Preliminary Blood NO GROWTH AFTER 48 HOURS Discharge Plan Discharge Disposition: Home, Self-Care Date of Admission: 04/11/22 15:40 Attending Provider on Discharge: Lily Brothers Primary Care Provider: Zonia Galloway I Condition: Improved Anticipated Discharge Date/Time: 04/14/22 11:05 Discharge Medications: New oxycodone 5 mg Tablet 5 mg PO Q4H PRNQty: 15 0RF Continued metformin 500 mg tablet 1,000 mg PO BIDWM 0RF Label Comments: TAKE 2 TABLETS BY MOUTH TWICE DAILY WITH MEALS allopurinol 300 mg tablet 300 mg PO DAILY 0RF Label Comments: TAKE 1 TABLET BY MOUTH ONCE DAILY atenolol 100 mg tablet 100 mg PO DAILY 0RF Label Comments: TAKE 1 TABLET BY MOUTH ONCE DAILY aspirin [Aspirin Childrens] 81 mg tablet,chewable 81 mg PO DAILY 0RF losartan 100 mg tablet 100 mg PO HS 0RF magnesium citrate 100 mg capsule 400 mg PO DAILY 0RF coQ10 (ubiquinol) 100 mg capsule 60 mg PO DAILY 0RF kyolic (garlic) PO DAILY 0RF Label Comments: garlic extract Rx Instructions: takes 2 tabs daily vitamin B complex Tablet 1 tab PO DAILY 0RF cholecalciferol (vitamin D3) [D3-2000] 50 mcg (2,000 unit) capsule 2,000 unit PO DAILY 0RF atorvastatin 40 mg tablet 40 mg PO HS 0RF Eliquis 5 mg tablet 5 mg PO BID 0RF omeprazole 20 mg capsule,delayed release(DR/EC) 20 mg PO DAILY 0RF Label Comments: TAKE 1 CAPSULE BY MOUTH ONCE DAILY BEFORE A MEAL ascorbic acid (vitamin C) [Vitamin C] 1,000 mg tablet 1 g PO DAILY 0RF Discharge Orders: Discharge Order (Routine); Ordered 04/14/22 Ordered By: Sebastian Combs Patient Education: Oxycodone, Rapid Release (By mouth), General Anesthesia (DC), Laparoscopic Cholecystectomy (DC), Post-Operative Instructions: Laparoscopic Cholecystectomy Activity Restrictions/Additional Instructions: Wound care: Your sutures are under the skin and will dissolve over time. Leave steri strips (white bandages) over incisions until they fall off (or remove after 7 days). OK to shower tomorrow but avoid bathing, soaking or swimming for 2 weeks. Pat the incisions dry. No need to wash or scrub the area. Apply ice to the area as needed for swelling. It is also OK to use a heating pad if this provides more comfort to you. Pain control: You were prescribed a pain medication. As your pain improves, you can try taking acetaminophen instead of the prescribed pain pill. Take an [id number] stool softener while you are taking prescribed pain medications to help alleviate constipation. I recommend Senna and/or Colace. Take as directed on package. If you have not had a bowel movement in 3 days, try taking Miralax as directed on the package. All of these are available over the counter. Follow-up Follow up with Dr. Brothers in 2-3 weeks at [facility] Please call if you are experiencing severe pain, nausea, vomiting, difficulty urinating, fever or have not had bowel movement in 4 days after surgery. Activity Level: No strenuous activity Activity Detail: No lifting more than 20 pounds for 2 weeks Discharge Diet: Diabetic Follow Up Appointments: Zonia Galloway MD [Primary Care Provider] - Lily Brothers MD [Staff Physician] - ([facility] will call patient to set up an appointment in 2-[address] Brothers.) Forms: [facility] Info Instructions
--- NOTE | 2022-04-14 13:18 | PC.NURSE ---
Discharge Note: Pt c/o 7/10 low back pain this morning. Believes it is related to position in the bed. Also c/o 2/10 abdominal pain r/t lap lacy. PRN Tylenol and Oxycodone given. Slightly hypertensive, scheduled atenolol and Losartan given this am. HR low 60's. Lap sites to abdomen dry and intact with scant amounts of bloody drainage, pt declines active ice at this time. Advanced to regular diet without difficulty and pt reports small amount of flatus. Moves well independently. Pt was was discharged to home in the care of his at 1300. Pt and his verbalized understanding of discharge instructions and follow up appointments.
== END 2022-04-14 13:22 | disposition home or self-care (01) | DRG 417 ==
LOC: ED 14:58 → MEDSURG 15:41
PROVIDERS: Family Medicine; Internal Medicine; Student in an Organized Health Care Education/Training Program; Surgery; Admitting Provider Hospitalist; Emergency Provider Family Medicine; PCP Family Medicine; Visit Provider Hospitalist
PROC: 0FT44ZZ Resection of Gallbladder, Percutaneous Endoscopic Approach (ICD-10-PCS; CPT 47562; principal; 2022-04-13 13:00)
DX: K85.10 Biliary acute pancreatitis without necrosis or infection (principal); J96.01 Acute respiratory failure with hypoxia; K80.13 Calculus of gallbladder with acute and chronic cholecystitis with obstruction; I12.9 Hypertensive chronic kidney disease with stage 1 through stage 4 chronic kidney disease, or unspecified chronic kidney disease; E11.22 Type 2 diabetes mellitus with diabetic chronic kidney disease; N18.30 Chronic kidney disease, stage 3 unspecified; I48.0 Paroxysmal atrial fibrillation; I25.10 Atherosclerotic heart disease of native coronary artery without angina pectoris; K21.9 Gastro-esophageal reflux disease without esophagitis; I48.91 Unspecified atrial fibrillation; Z79.01 Long term (current) use of anticoagulants; E78.5 Hyperlipidemia, unspecified; M10.9 Gout, unspecified; Z86.73 Personal history of transient ischemic attack (TIA), and cerebral infarction without residual deficits; Z95.1 Presence of aortocoronary bypass graft
CPT/HCPCS: 00790; 36415; 71046; 74177; 74181; 76705; 80048; 80053; 80076; 81001; 81003; 81015; 82803; 82947; 82977; 83036; 83605; 83690; 83735; 83880; 84145; 84439; 84443; 84484; 84550; 85025; 85610; 86140; 87040; 87635; 88304; 93005; 93306; 99100; 99283; 99285; A9270; C9113; J0131; J0330; J1100; J1170; J1940; J2405; J2543; J2704; J2710; J3010; J3475; J3490; J7030; J7120; Q9967

== ENCOUNTER 2022-11-14 11:59 | Outpatient (CLI) | payer MEDICARE, BC, SELFPAY ==
[2022-11-14 12:11] VITALS: BP 167/93; PULSE 60; RESP 18; O2SAT 98
[2022-11-14] MEDS: TETRACAINE 0.5% OPHTH 1 DROP EYE-BOTH ×3 (12:16→13:24)
[2022-11-14] MEDS: BRIMONIDINE TARTRATE 0.2% OPHTH 1 DROP EYE-BOTH ×2 (12:17→13:35)
--- NOTE | 2022-11-14 13:43 | P.OPTPRC_ITS ---
Procedure Note Date of procedure: 11/14/22 Will [facility] bill your pro fee for this procedure?: Yes Procedure Description: SURGEON: Danelle Pedersen MD PREOPERATIVE DIAGNOSIS: Posterior capsular opacity, right and left eye POSTOPERATIVE DIAGNOSIS: Posterior capsular opacity, right and left eye PROCEDURE: YAG laser capsulotomy, both eyes ANESTHESIA: Topical. ESTIMATED BLOOD LOSS: None PATHOLOGY SPECIMEN: None COMPLICATIONS: None INDICATIONS: See consult note for details. The risks, benefits and alternatives of the procedure were explained to the patient, who elected to proceed and signed informed consent to do so. PROCEDURE: The patient was brought to the pre-holding area where the right and left eyes were identified as the operative eyes. I placed my initials above the eyes. The following was given in both eyes: The patient received 2 sets of 1 drop of 0.5% tetracaine and 1 drop of 1% tropicamide. They also received 1 drop of 0.2% brimonidine. They received 1 drop of 0.5% tetracaine immediately prior to bringing them back for the procedure. The patient was then brought to the procedure room where the right and left eyes were again identified as the operative eyes. A YAG Emile capsulotomy lens was placed on the right eye. The laser was administered using a total number of [] shots with an energy of 2.4 mJ per shot for a total energy of 48 mJ. The patient tolerated the procedure well. A YAG Emile capsulotomy lens was placed on the left eye. The laser was administered using a total number of 6 shots with an energy of 2.4 mJ per shot for a total energy of 14 mJ. The patient tolerated the procedure well. DISPOSITION: The patient was taken back to the pre-holding area and given 1 drop of 0.2% brimonidine in both eyes. They were discharged to home in stable condition. The patient was [facility], including dramatic loss of vision, severe pain in the eye or eyebrow region, nausea, or vomiting. The patient was instructed to use the 0.2% brimonidine 1 drop 2 times a day in both eyes for 1 week. The patient will follow up in the clinic in 1-2 weeks. Twenty Surgeon: Danelle Pedersen MD
== END 2022-11-14 13:37 | disposition home or self-care (01) ==
PROVIDERS: PCP Family Medicine; Visit Provider Ophthalmology
DX: H26.9 Unspecified cataract (principal)
CPT/HCPCS: 66821; A9270

== ENCOUNTER 2023-08-12 08:22 | Emergency (ER) | payer MEDICARE, BC, SELFPAY ==
[2023-08-12] VITALS (50 sets, daily range): BP systolic 152–238; BP diastolic 65–137; PULSE 38–64; RESP 18; TEMP 36.2; O2SAT 91–98; BMI 33.6
--- NOTE | 2023-08-12 08:45 | ED_ITS ---
HPI - General Adult General Chief complaint: Dizziness/Vertigo Stated complaint: Two TIAs in last 5 days, dizzy Time Seen by Provider: 08/12/23 08:33 History of Present Illness HPI narrative: history of stroke 3 yrs ago. has had dizziness for years. concern today due to several episodes of slurred speech and headaches, episodes lasting a couple minutes. 77-year-old man presenting to the emergency department with concern of dizziness. To clarify this dizziness is actually a chronic nature. Has been going on many months now at least 3. This is in the setting also of a [place] stroke, 3 years ago, I believe seen through this department and transfered to [facility]. Treatment was thrombolysis. He had presented with some left-sided weakness. They report no follow-up since. Has been maintained on twice daily Eliquis and daily aspirin. No longer takes clopidogrel. Dizziness has been present particularly when he goes to lay down. Sometimes in transitions he has to pause. Is specific that this is dizziness more than lightheadedness. What brings them in though now is that he had 2 episodes in 3 days ago where was at rest and had about a minute where he simply could not speak or articulate in some way what he was trying to say. Sounds as though he sort of froze. Not associated with any peripheral symptoms otherwise. He is also currently experiencing headache. Normally does not get a headache. Was seen I believe about a week ago for some spots in his left eye. It is not clear to me what that diagnosis is. Other symptoms he noted though not new are where something moving fast or light crossing in his field of vision will cause him to feel diz zy. Otherwise sounds like he is experiencing a little throat congestion, mucous. History of paroxysmal atrial fibrillation, cardiac stents and CABG. Related Data Home Medications Medication Instructions Recorded Confirmed allopurinol 300 mg tablet 300 mg PO DAILY 04/11/22 08/12/23 apixaban 5 mg tablet (Eliquis) 5 mg PO BID 04/11/22 08/12/23 ascorbic acid (vitamin C) 1,000 mg 1 g PO DAILY 04/11/22 08/12/23 tablet (Vitamin C) aspirin 81 mg chewable tablet 81 mg PO DAILY 04/11/22 08/12/23 (Aspirin Childrens) atenolol 100 mg tablet 100 mg PO DAILY 04/11/22 08/12/23 atorvastatin 40 mg tablet 40 mg PO HS 04/11/22 08/12/23 cholecalciferol (vitamin D3) 50 2,000 unit PO DAILY 04/11/22 08/12/23 mcg (2,000 unit) capsule (D3-2000) coQ10 (ubiquinol) 100 mg capsule 60 mg PO DAILY 04/11/22 08/12/23 kyolic (garlic) PO DAILY 04/11/22 losartan 100 mg tablet 100 mg PO HS 04/11/22 08/12/23 magnesium citrate 100 mg capsule 400 mg PO DAILY 04/11/22 08/12/23 metformin 500 mg tablet 1,000 mg PO BIDWM 04/11/22 08/12/23 omeprazole 20 mg capsule,delayed 20 mg PO DAILY 04/11/22 04/11/22 release vitamin B complex 1 tab PO DAILY 04/11/22 04/11/22 clopidogrel 20 mg PO DAILY 08/12/23 08/12/23 Previous Rx's Medication Instructions Recorded oxycodone 5 mg tablet 5 mg PO Q4H PRN #15 tabs 04/14/22 Allergies Allergy/AdvReac Type Severity Reaction Status Date / Time lisinopril Allergy Mild Cough Verified 04/11/22 11:02 ibuprofen AdvReac Unknown Unverified 04/11/22 19:19 Review of Systems Status of ROS: Reports: 6 or more systems reviewed and unremarkable except as noted in History and below [facility] Medical History Hypertension ?I10 - Essential (primary) hypertension (ICD-10) Paroxysmal atrial fibrillation ?I48.0 - Paroxysmal atrial fibrillation (ICD-10) Stroke aborted by administration of thrombolytic agent ?I63.9 - Cerebral infarction, unspecified (ICD-10) Gallstone pancreatitis ?K85.10 - Biliary acute pancreatitis without necrosis or infection (ICD-10) Stroke (cerebrum) ?I63.9 - Cerebral infarction, unspecified (ICD-10) Gout ?M10.9 - Gout, unspecified (ICD-10) CKD (chronic kidney disease) stage 3, GFR 30-59 ml/min ?N18.30 - Chronic kidney disease, stage 3 unspecified (ICD-10) Chronic anticoagulation ?Z79.01 - long term care phlebotomist (current) use of anticoagulants (ICD-10) Hyperlipidemia ?E78.5 - Hyperlipidemia, unspecified (ICD-10) GERD (gastroesophageal reflux disease) ?K21.9 - Gastro-esophageal reflux disease without esophagitis (ICD-10) Diabetes mellitus ?E11.9 - Type 2 diabetes mellitus without complications (ICD-10) Coronary artery disease ?I25.10 - Atherosclerotic heart disease of [place] coronary artery without angina pectoris (ICD-10) Atrial fibrillation ?I48.91 - Unspecified atrial fibrillation (ICD-10) Surgical History S/P laparoscopic cholecystectomy ?Z90.49 - Acquired absence of other specified parts of digestive tract (ICD- 10) S/P ear surgery ?Z98.890 - Other specified postprocedural states (ICD-10) H/O shoulder replacement ?Z96.619 - Presence of unspecified artificial shoulder joint (ICD-10) H/O arthroscopic knee surgery ?Z98.890 - Other specified postprocedural states (ICD-10) History of tonsillectomy ?Z90.89 - Acquired absence of other organs (ICD-10) History of knee replacement procedure of right knee ?Z96.651 - Presence of right artificial knee joint (ICD-10) History of knee replacement procedure of left knee ?Z96.652 - Presence of left artificial knee joint (ICD-10) S/P CABG x 2 ?Z95.1 - Presence of aortocoronary bypass graft (ICD-10) S/P CABG x 4 ?Z95.1 - Presence of aortocoronary bypass graft (ICD-10) S/P appendectomy ?Z90.49 - Acquired absence of other specified parts of digestive tract (ICD- 10) Family History Other Coronary artery disease Social History Narrative: 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 He is . He is a former smoker. He does not currently drink alcohol. Highest level of school completed/degree received: high school graduate Smoking Status: Former smoker Do you use any of these nicotine containing products: None How often do you have a drink containing alcohol: never AUDIT-C Alcohol total score: 0 Non-prescribed substance use: denies use Caffeine: Yes service: Yes Exam Narrative: Exam Narrative: Elevated blood pressure is noted. 0 on NIH Stroke Scale Pleasant. Fully alert. GCS of 15. Moving all extremities without difficulty. Full strength. Accurate point to point. He is methodical in his speech but it sounds like this is baseline. Sometimes seems to have subtle difficulty in recall. Cranial nerves 2-12 are intact. No nystagmus. He has no focal sensory deficits. Extremities are well perfused. Trace pretibial edema. Heart in regular rate and rhythm. I do not hear any murmur. Lungs are clear. Head is atraumatic. Abdomen is soft overweight nontender. Const: Vital Signs, click to edit/add: Vital Signs - 24 hr 08/12/23 08:39 08/12/23 08:47 08/12/23 08:48 Temperature 97.1 F L Pulse Rate 59 L 56 L Pulse Rate [Right Pulse Oximeter] 64 Respiratory Rate 18 Blood Pressure 194/96 H Blood Pressure [Ri ght Upper Arm] 209/97 H Pulse Oximetry 93 93 96 Oxygen Delivery Me thod Room Air 08/12/23 09:02 08/12/23 09:18 08/12/23 09:33 Temperature Pulse Rate Pulse Rate [Right Pulse Oximeter] Respiratory Rate Blood Pressure 214/91 H 225/90 H 238/103 H Blood Pressure [Ri ght Upper Arm] Pulse Oximetry Oxygen Delivery Me thod 08/12/23 09:47 08/12/23 10:02 08/12/23 10:46 Temperature Pulse Rate 53 L Pulse Rate [Right Pulse Oximeter] Respiratory Rate Blood Pressure 225/96 H 220/99 H Blood Pressure [Ri ght Upper Arm] Pulse Oximetry 97 Oxygen Delivery Me thod 08/12/23 10:47 08/12/23 11:00 08/12/23 11:02 Temperature Pulse Rate 54 L 52 L 58 L Pulse Rate [Right Pulse Oximeter] Respiratory Rate Blood Pressure 198/91 H 209/84 H Blood Pressure [Ri ght Upper Arm] Pulse Oximetry 97 97 95 Oxygen Delivery Me thod 08/12/23 11:15 08/12/23 11:18 08/12/23 11:30 Temperature Pulse Rate 55 L 52 L 55 L Pulse Rate [Right Pulse Oximeter] Respiratory Rate Blood Pressure 222/83 H Blood Pressure [Ri ght Upper Arm] Pulse Oximetry 98 98 97 Oxygen Delivery Me thod 08/12/23 11:32 08/12/23 11:33 08/12/23 12:45 Temperature Pulse Rate 55 L 55 L 56 L Pulse Rate [Right Pulse Oximeter] Respiratory Rate Blood Pressure 195/77 H Blood Pressure [Ri ght Upper Arm] Pulse Oximetry 96 96 96 Oxygen Delivery Me thod 08/12/23 12:46 08/12/23 13:00 08/12/23 13:02 Temperature Pulse Rate 53 L 54 L 54 L Pulse Rate [Right Pulse Oximeter] Respiratory Rate Blood Pressure 201/79 H 190/79 H Blood Pressure [Ri ght Upper Arm] Pulse Oximetry 96 96 95 Oxygen Delivery Me thod 08/12/23 13:15 08/12/23 13:17 08/12/23 13:30 Temperature Pulse Rate 52 L 55 L 55 L Pulse Rate [Right Pulse Oximeter] Respiratory Rate Blood Pressure 203/137 H Blood Pressure [Ri ght Upper Arm] Pulse Oximetry 96 94 95 Oxygen Delivery Me thod 08/12/23 13:45 08/12/23 13:47 08/12/23 14:00 Temperature Pulse Rate 47 L 52 L 38 L Pulse Rate [Right Pulse Oximeter] Respiratory Rate Blood Pressure 173/86 H Blood Pressure [Ri ght Upper Arm] Pulse Oximetry 96 95 95 Oxygen Delivery Me thod 08/12/23 14:02 08/12/23 14:15 08/12/23 14:17 Temperature Pulse Rate 51 L 54 L 51 L Pulse Rate [Right Pulse Oximeter] Respiratory Rate Blood Pressure 165/80 H 177/83 H Blood Pressure [Ri ght Upper Arm] Pulse Oximetry 96 96 96 Oxygen Delivery Me thod 08/12/23 14:18 08/12/23 14:30 08/12/23 14:32 Temperature Pulse Rate 50 L 52 L 55 L Pulse Rate [Right Pulse Oximeter] Respiratory Rate Blood Pressure 174/76 H Blood Pressure [Ri ght Upper Arm] Pulse Oximetry 95 96 95 Oxygen Delivery Me thod 08/12/23 14:52 Temperature Pulse Rate 47 L Pulse Rate [Right Pulse Oximeter] Respiratory Rate Blood Pressure Blood Pressure [Ri ght Upper Arm] Pulse Oximetry 98 Oxygen Delivery Me thod Documenting provider has reviewed patient's vital signs: yes Course Vital Signs Vital signs: Initial Vital Signs Temperature 97.1 F L 08/12/23 08:39 Temperature Source Temporal Artery Scan 08/12/23 08:39 Pulse Rate 64 08/12/23 08:39 Respiratory Rate 18 08/12/23 08:39 Blood Pressure 209/97 H 08/12/23 08:39 Blood Pressure Mean 134 H 08/12/23 08:39 Blood Pressure Position Sitting 08/12/23 08:39 Pulse Oximetry 93 08/12/23 08:39 Oxygen Delivery Method Room Air 08/12/23 08:39 Vital Signs Temperature 97.1 F L 08/12/23 08:39 Pulse Rate 64 08/12/23 08:39 Respiratory Rate 18 08/12/23 08:39 Blood Pressure 209/97 H 08/12/23 08:39 Pulse Oximetry 93 08/12/23 08:39 Oxygen Delivery Method Room Air 08/12/23 08:39 Temperature 97.1 F L 08/12/23 08:39 Pulse Rate 47 L 08/12/23 14:52 Respiratory Rate 18 08/12/23 08:39 Blood Pressure 174/76 H 08/12/23 14:32 Pulse Oximetry 98 08/12/23 14:52 Oxygen Delivery Method Room Air 08/12/23 08:39 Medical Decision Making MDM Narrative Medical decision making narrative: He has maintained anticoagulation. Sounds to be in a regular rhythm on physical exam. Certainly concern for evolving stroke in this setting. May have a new bleed. Concern of best test at this time given subacute nature. Initiating labs IV fluids. EKG reviewed by me shows a regular bradycardia with partial right bundle rate of 55. I did discuss with Stroke Neuro recommending CTA head and neck and then depending on this result likely basic brain MRI later this morning. Monitoring for progression here and blood pressure. Permissive hypertension at this time. I did review images of CTA head and neck COMPARISON: CTA head and neck dated 06/05/2021. FINDINGS: The petrous, cavernous, and supraclinoid segments of the internal carotid arteries are patent. The anterior and middle cerebral arteries are patent. The anterior communicating artery is visualized and is within normal limits. The intracranial vertebral arteries, basilar trunk, and posterior cerebral arteries are patent. Intracranial atherosclerotic disease without proximal large vessel occlusion or flow-limiting luminal stenosis. No evidence of cerebral aneurysm. No findings to suggest an arterial-venous shunting lesion. IMPRESSION: Intracranial atherosclerotic disease without proximal large vessel occlusion or flow-limiting luminal stenosis. Neck---- FINDINGS: The great vessels are patent. The common carotid arteries are patent. Critical (<90%) atherosclerotic stenosis of the proximal left ICA by NASCET criteria. Moderate (approximately 50%) stenosis of the proximal right ICA by NASCET criteria. The more distal cervical ICAs are patent. Severe stenosis at the origin of the left vertebral artery. No significant stenosis at the origin of the right vertebral artery. The cervical segments of the vertebral arteries are patent. IMPRESSION: 1. Critical (<90%) stenosis of the proximal left ICA by NASCET criteria. 2. Moderate (approximately 50%) stenosis of the proximal right ICA by NASCET criteria. 3. Severe stenosis at the origin of the left vertebral artery. Head---- IMPRESSION: 1. No CT evidence of acute intracranial abnormality. 2. Mild chronic microangiopathy changes, with small chronic infarcts at the left thalamus and bilateral cerebellar hemispheres. 3. Stable dystrophic calcification versus cavernoma in the central donna. Findings were discussed with Stroke Neuro as well as vascular surgery at [facility]. Recommendations were for transfer for likely vascular surgery. Suspected symptomatic with TIA-type event from significant stenotic changes as noted above. On re-evaluation Mr. Pollack seems to be more energetic. Improved color in his face. MRI of brain IMPRESSION: 1. No acute infarction, mass effect, or recent intracranial hemorrhage. 2. Chronic lacunar infarctions in the left thalamus and left cerebellar hemisphere. 3. Paob-ox-jglmsroy chronic microvascular ischemic changes and mild diffuse cerebral volume loss. 4. Postsurgical changes of right canal wall up mastoidectomy with opacification of the residual mastoid air cells and right middle ear cavity. There is a small to moderate left mastoid effusion. Blood pressures have overall improved into the 170s over 70s. No intervention. Since has taken his Eliquis today no heparinization recommended for follow-up conversation with neuro. Pending transport at this time. Lab Data Lab results reviewed: Yes I reviewed the patient's lab results Labs: Lab Results 08/12/23 08/12/23 08/12/23 Range/Units 09:32 09:32 09:32 WBC 6.91 (4.50-11.00) K/uL RBC 4.72 (4.30-5.90) m/uL Hgb 14.5 (13.5-17.5) gm/dL Hct 44.1 (37.0-53.0) % MCV 93 (80-100) fL MCH 31 (26-34) pg MCHC 33 (32-36) gm/dL RDW Coeff of Jhonny 14.1 (11.5-15.5) % Plt Count 159 (140-440) K/uL Neut % (Auto) 74.1 H (42.0-72.0) % Lymph % (Auto) 13.9 L (20-44) % [place] % (Auto) 9.7 (0.0-11.0) % Eos % (Auto) 1.9 (0.0-7.0) % Baso % (Auto) 0.3 (0.0-3.0) % Neut # (Auto) 5.10 (1.7-7.0) K/uL Lymph # (Auto) 1.00 (0.90-2.90) K/uL [place] # (Auto) 0.70 (0.00-0.90) K/UL Eos # (Auto) 0.13 (0.00-0.50) K/uL Baso # (Auto) 0.02 (0.00-0.30) K/uL Abs Immat Gran (auto) 0.01 (0.00-0.30) K/uL Imm/Tot Granulo (auto) 0.1 % INR 1.15 H (0.91-1.10) APTT 36 H (23-33) Seconds Sodium Cancelled 140 Potassium Cancelled 4.6 Chloride Cancelled Carbon Dioxide Anion Gap BUN Creatinine Estimated Creat Clear Estimated GFR Glucose Calcium Magnesium (1.5-2.6) mg/dL Troponin I (0.01-0.04) ng/mL C-Reactive Protein NT-Pro-B Natriuret Pep pg/mL 08/12/23 08/12/23 08/12/23 Range/Units 09:32 09:32 09:32 WBC (4.50-11.00) K/uL RBC (4.30-5.90) m/uL Hgb (13.5-17.5) gm/dL Hct (37.0-53.0) % MCV (80-100) fL MCH (26-34) pg MCHC (32-36) gm/dL RDW Coeff of Jhonny (11.5-15.5) % Plt Count (140-440) K/uL Neut % (Auto) (42.0-72.0) % Lymph % (Auto) (20-44) % [place] % (Auto) (0.0-11.0) % Eos % (Auto) (0.0-7.0) % Baso % (Auto) (0.0-3.0) % Neut # (Auto) (1.7-7.0) K/uL Lymph # (Auto) (0.90-2.90) K/uL [place] # (Auto) (0.00-0.90) K/UL Eos # (Auto) (0.00-0.50) K/uL Baso # (Auto) (0.00-0.30) K/uL Abs Immat Gran (auto) (0.00-0.30) K/uL Imm/Tot Granulo (auto) % INR (0.91-1.10) APTT (23-33) Seconds Sodium Potassium Chloride 108 Carbon Dioxide Cancelled 26 Anion Gap Cancelled 6 L BUN Cancelled Creatinine Estimated Creat Clear Estimated GFR Glucose Calcium Magnesium (1.5-2.6) mg/dL Troponin I (0.01-0.04) ng/mL C-Reactive Protein NT-Pro-B Natriuret Pep pg/mL 08/12/23 08/12/23 08/12/23 Range/Units 09:32 09:32 09:32 WBC (4.50-11.00) K/uL RBC (4.30-5.90) m/uL Hgb (13.5-17.5) gm/dL Hct (37.0-53.0) % MCV (80-100) fL MCH (26-34) pg MCHC (32-36) gm/dL RDW Coeff of Jhonny (11.5-15.5) % Plt Count (140-440) K/uL Neut % (Auto) (42.0-72.0) % Lymph % (Auto) (20-44) % [place] % (Auto) (0.0-11.0) % Eos % (Auto) (0.0-7.0) % Baso % (Auto) (0.0-3.0) % Neut # (Auto) (1.7-7.0) K/uL Lymph # (Auto) (0.90-2.90) K/uL [place] # (Auto) (0.00-0.90) K/UL Eos # (Auto) (0.00-0.50) K/uL Baso # (Auto) (0.00-0.30) K/uL Abs Immat Gran (auto) (0.00-0.30) K/uL Imm/Tot Granulo (auto) % INR (0.91-1.10) APTT (23-33) Seconds Sodium Potassium Chloride Carbon Dioxide Anion Gap BUN 16 Creatinine Cancelled 1.1 Estimated Creat Clear Cancelled 61.54 Estimated GFR Cancelled Glucose Calcium Magnesium (1.5-2.6) mg/dL Troponin I (0.01-0.04) ng/mL C-Reactive Protein NT-Pro-B Natriuret Pep pg/mL 08/12/23 08/12/23 08/12/23 Range/Units 09:32 09:32 09:32 WBC (4.50-11.00) K/uL RBC (4.30-5.90) m/uL Hgb (13.5-17.5) gm/dL Hct (37.0-53.0) % MCV (80-100) fL MCH (26-34) pg MCHC (32-36) gm/dL RDW Coeff of Jhonny (11.5-15.5) % Plt Count (140-440) K/uL Neut % (Auto) (42.0-72.0) % Lymph % (Auto) (20-44) % [place] % (Auto) (0.0-11.0) % Eos % (Auto) (0.0-7.0) % Baso % (Auto) (0.0-3.0) % Neut # (Auto) (1.7-7.0) K/uL Lymph # (Auto) (0.90-2.90) K/uL [place] # (Auto) (0.00-0.90) K/UL Eos # (Auto) (0.00-0.50) K/uL Baso # (Auto) (0.00-0.30) K/uL Abs Immat Gran (auto) (0.00-0.30) K/uL Imm/Tot Granulo (auto) % INR (0.91-1.10) APTT (23-33) Seconds Sodium Potassium Chloride Carbon Dioxide Anion Gap BUN Creatinine Estimated Creat Clear Estimated GFR 68 Glucose Cancelled 132 H Calcium Cancelled 9.1 Magnesium 1.7 (1.5-2.6) mg/dL Troponin I < 0.01 L (0.01-0.04) ng/mL C-Reactive Protein NT-Pro-B Natriuret Pep pg/mL 08/12/23 08/12/23 Range/Units 09:32 09:32 WBC (4.50-11.00) K/uL RBC (4.30-5.90) m/uL Hgb (13.5-17.5) gm/dL Hct (37.0-53.0) % MCV (80-100) fL MCH (26-34) pg MCHC (32-36) gm/dL RDW Coeff of Jhonny (11.5-15.5) % Plt Count (140-440) K/uL Neut % (Auto) (42.0-72.0) % Lymph % (Auto) (20-44) % [place] % (Auto) (0.0-11.0) % Eos % (Auto) (0.0-7.0) % Baso % (Auto) (0.0-3.0) % Neut # (Auto) (1.7-7.0) K/uL Lymph # (Auto) (0.90-2.90) K/uL [place] # (Auto) (0.00-0.90) K/UL Eos # (Auto) (0.00-0.50) K/uL Baso # (Auto) (0.00-0.30) K/uL Abs Immat Gran (auto) (0.00-0.30) K/uL Imm/Tot Granulo (auto) % INR (0.91-1.10) APTT (23-33) Seconds Sodium Potassium Chloride Carbon Dioxide Anion Gap BUN Creatinine Estimated Creat Clear Estimated GFR Glucose Calcium Magnesium (1.5-2.6) mg/dL Troponin I Cancelled (0.01-0.04) ng/mL C-Reactive Protein Cancelled < 0.5 L NT-Pro-B Natriuret Pep 1640 pg/mL Discharge Plan Discharge Clinical Impression: Carotid artery stenosis, Brain TIA, Vertebral artery stenosis Patient Disposition: Xfer Other Discharge Location: [facility] Condition: Stable Prescriptions: No Action metformin 500 mg tablet 1,000 mg PO BIDWM Patient Comments: TAKE 2 TABLETS BY MOUTH TWICE DAILY WITH MEALS allopurinol 300 mg tablet 300 mg PO DAILY Patient Comments: TAKE 1 TABLET BY MOUTH ONCE DAILY atenolol 100 mg tablet 100 mg PO DAILY Patient Comments: TAKE 1 TABLET BY MOUTH ONCE DAILY aspirin [Aspirin Childrens] 81 mg tablet,chewable 81 mg PO DAILY losartan 100 mg tablet 100 mg PO HS magnesium citrate 100 mg capsule 400 mg PO DAILY coQ10 (ubiquinol) 100 mg capsule 60 mg PO DAILY kyolic (garlic) PO DAILY Patient Comments: garlic extract Rx Instructions: takes 2 tabs daily vitamin B complex Tablet 1 tab PO DAILY cholecalciferol (vitamin D3) [D3-2000] 50 mcg (2,000 unit) capsule 2,000 unit PO DAILY atorvastatin 40 mg tablet 40 mg PO HS Eliquis 5 mg tablet 5 mg PO BID omeprazole 20 mg capsule,delayed release(DR/EC) 20 mg PO DAILY Patient Comments: TAKE 1 CAPSULE BY MOUTH ONCE DAILY BEFORE A MEAL ascorbic acid (vitamin C) [Vitamin C] 1,000 mg tablet 1 g PO DAILY oxycodone 5 mg Tablet 5 mg PO Q4H PRNQty: 15 0RF clopidogrel 20 mg PO DAILY Stand Alone Forms: Hopper Info Instructions
--- NOTE | 2023-08-12 09:27 | CRLHL7_ITS ---
For Patients: As a result of the Century Cures Act, medical imaging exams and procedure reports are released immediately into your electronic medical record. You may view this report before your referring provider. If you have questions, please contact your health care provider. CLINICAL HISTORY: Headache, hypertensive, dysarthria. TECHNIQUE: CTA head with contrast bolus tracking. 3D angiographic rendering using maximum intensity projection (MIP) and images permanently archived. COMPARISON: CTA head and neck dated 06/05/2021. FINDINGS: The petrous, cavernous, and supraclinoid segments of the internal carotid arteries are patent. The anterior and middle cerebral arteries are patent. The anterior communicating artery is visualized and is within normal limits. The intracranial vertebral arteries, basilar trunk, and posterior cerebral arteries are patent. Intracranial atherosclerotic disease without proximal large vessel occlusion or flow-limiting luminal stenosis. No evidence of cerebral aneurysm. No findings to suggest an arterial-venous shunting lesion. IMPRESSION: Intracranial atherosclerotic disease without proximal large vessel occlusion or flow-limiting luminal stenosis. Please note that all CT scans at this facility use dose modulation, iterative reconstruction, and/or weight-based dosing when appropriate to reduce radiation dose to as low as reasonably achievable. Dictated by Chilo Miller MD @ 08/12/2023 11:47:13 AM (Electronically Signed)
--- NOTE | 2023-08-12 09:27 | CRLHL7_ITS ---
For Patients: As a result of the Century Cures Act, medical imaging exams and procedure reports are released immediately into your electronic medical record. You may view this report before your referring provider. If you have questions, please contact your health care provider. CLINICAL HISTORY: Headache, hypertensive, dysarthria. TECHNIQUE: CTA neck with contrast bolus tracking. 3D angiographic rendering using maximum intensity projection (MIP) and images permanently archived. COMPARISON: None available. FINDINGS: The great vessels are patent. The common carotid arteries are patent. Critical (<90%) atherosclerotic stenosis of the proximal left ICA by NASCET criteria. Moderate (approximately 50%) stenosis of the proximal right ICA by NASCET criteria. The more distal cervical ICAs are patent. Severe stenosis at the origin of the left vertebral artery. No significant stenosis at the origin of the right vertebral artery. The cervical segments of the vertebral arteries are patent. IMPRESSION: 1. Critical (<90%) stenosis of the proximal left ICA by NASCET criteria. 2. Moderate (approximately 50%) stenosis of the proximal right ICA by NASCET criteria. 3. Severe stenosis at the origin of the left vertebral artery. Please note that all CT scans at this facility use dose modulation, iterative reconstruction, and/or weight-based dosing when appropriate to reduce radiation dose to as low as reasonably achievable. Dictated by Chilo Miller MD @ 08/12/2023 11:26:34 AM (Electronically Signed)
--- NOTE | 2023-08-12 09:27 | CRLHL7_ITS ---
For Patients: As a result of the Century Cures Act, medical imaging exams and procedure reports are released immediately into your electronic medical record. You may view this report before your referring provider. If you have questions, please contact your health care provider. INDICATION: Elevated blood pressure, headache, transient dysarthria TECHNIQUE: Noncontrast axial CT of the head. Coronal and sagittal reformats. Bone and soft tissue algorithms. COMPARISON: CT head 06/05/2021 FINDINGS: The ventricles and cortical sulci appear age-appropriate. No midline shift or mass effect. No acute intracranial hemorrhage or extra-axial fluid collection. Pan-white matter differentiation is grossly maintained. Chronic infarcts are present in the left thalamus and bilateral cerebellar hemispheres, left larger than right. Presumed dystrophic calcification and/or cavernoma is noted within the central donna. Scattered hypoattenuation is noted throughout the supratentorial white matter, typical of chronic microangiopathy. Calcific plaquing at the carotid siphons. Midline structures are unremarkable. Bony calvarium appears grossly intact. Mild mucosal thickening along the inferior maxillary sinuses. Right canal wall up mastoidectomy changes, with opacified mastoid bowl and middle ear. Bilateral lens implants. IMPRESSION: 1. No CT evidence of acute intracranial abnormality. 2. Mild chronic microangiopathy changes, with small chronic infarcts at the left thalamus and bilateral cerebellar hemispheres. 3. Stable dystrophic calcification versus cavernoma in the central donna. Please note that all CT scans at this facility use dose modulation, iterative reconstruction, and/or weight-based dosing when appropriate to reduce radiation dose to as low as reasonably achievable. Dictated by Dalia Iverson MD @ 08/12/2023 10:31:39 AM (Electronically Signed)
[2023-08-12] MEDS: 0.9 % SODIUM CHLORIDE 1000 ml 1,000 ML IV (09:40)
[2023-08-12 09:51] LABS: Basophils Absolute Auto 0.02 K/uL (0.00-0.30); Basophils Percent Auto 0.3 % (0.0-3.0); Eosinophils Absolute Auto 0.13 K/uL (0.00-0.50); Eosinophils Percent Auto 1.9 % (0.0-7.0); Hematocrit 44.1 % (37.0-53.0); Hemoglobin* 14.5 gm/dL (13.5-17.5); Immature Granulocytes Abs Auto 0.01 K/uL (0.00-0.30); Immature Granulocytes Pct Auto 0.1 %; Lymphocytes Percent Auto 13.9 % (20-44); Mean Corpuscular HGB Conc 33 gm/dL (32-36); Mean Corpuscular Hemoglobin 31 pg (26-34); Mean Corpuscular Volume 93 fL (80-100); Monocytes Percent Auto 9.7 % (0.0-11.0); Neutrophils Percent Auto 74.1 % (42.0-72.0); Platelet Count* 159 K/uL (140-440); RDW Coefficient of Variation % 14.1 % (11.5-15.5); Red Blood Count 4.72 m/uL (4.30-5.90); White Blood Count* 6.91 K/uL (4.50-11.00)
[2023-08-12 09:59] LABS: Slide Review Reflex No
[2023-08-12 10:10] LABS: Chloride* 108 mmol/L (96-114); Potassium* 4.6 mmol/L (3.6-5.1); Sodium* 140 mmol/L (135-149)
[2023-08-12 10:13] LABS: Creatinine* 1.1 mg/dL (0.5-1.5); Est. Creatinine Clearance* 61.54; Estimated Glomerular Filt Rate 68 ml/min
[2023-08-12 10:14] LABS: Anion Gap 6 mEq/L (7-15); Blood Urea Nitrogen* 16 mg/dL (7-30); Calcium* 9.1 mg/dL (8.4-10.6); Carbon Dioxide* 26 mmol/L (20-32); Glucose* 132 mg/dL (60-115); Magnesium* 1.7 mg/dL (1.5-2.6)
[2023-08-12 10:16] LABS: INR 1.15 (0.91-1.10); Prothrombin Time 15.4 Seconds
[2023-08-12 10:17] LABS: C Reactive Protein* < 0.5 mg/dL (0.5-1.0); Partial Thromboplastin Time* 36 Seconds (23-33)
[2023-08-12 10:26] LABS: NT Pro B Type NatriureticPept* 1640 pg/mL; Troponin I* < 0.01 ng/mL (0.01-0.04)
--- NOTE | 2023-08-12 10:54 | CRLHL7_ITS ---
For Patients: As a result of the Century Cures Act, medical imaging exams and procedure reports are released immediately into your electronic medical record. You may view this report before your referring provider. If you have questions, please contact your health care provider. INDICATION: Dizziness. TECHNIQUE: Multiplanar multisequence noncontrast MR images acquired through the brain. COMPARISON: CT brain 08/12/2023. FINDINGS: Prominence of the ventricles and sulci compatible with mild diffuse cerebral volume loss. No mass effect or midline shift. Scattered and patchy FLAIR hyperintensities in the supratentorial white matter, typical for hpkj-va-uphangnx chronic microvascular ischemic changes. Chronic lacunar infarctions in the left thalamus and left cerebellar hemisphere. No diffusion restriction to suggest acute infarction. Hemosiderin in the left cerebellar infarct bed. Few punctate foci of susceptibility within the right temporo-occipital region likely represent chronic microhemorrhages. No recent intracranial hemorrhage pathologic extra-axial fluid collection. The major arterial flow voids of the skullbase are preserved. Thinning of the ocular lenses. Mild paranasal sinus mucosal thickening. Postsurgical changes of right canal wall up mastoidectomy. The residual right mastoid air cells and middle ear cavity are opacified. Small to moderate left mastoid effusion. IMPRESSION: 1. No acute infarction, mass effect, or recent intracranial hemorrhage. 2. Chronic lacunar infarctions in the left thalamus and left cerebellar hemisphere. 3. Kewo-bc-myshrmxg chronic microvascular ischemic changes and mild diffuse cerebral volume loss. 4. Postsurgical changes of right canal wall up mastoidectomy with opacification of the residual mastoid air cells and right middle ear cavity. There is a small to moderate left mastoid effusion. Dictated by Josue Varner MD @ 08/12/2023 12:43:31 PM (Electronically Signed)
--- NOTE | 2023-08-12 11:18 | ED.NURSE ---
Asha with patient and Dr. Mary was completed. Patient ready for
--- NOTE | 2023-08-12 11:49 | ED.NURSE ---
Patient to MR at 1141
--- NOTE | 2023-08-12 14:53 | ED.NURSE ---
Patient ordered a meal tray.
--- NOTE | 2023-08-12 17:13 | ED.NURSE ---
[facility] here for transport
== END 2023-08-12 17:27 | disposition other institution (70) ==
PROVIDERS: Emergency Provider Family Medicine; PCP Family Medicine
DX: I65.29 Occlusion and stenosis of unspecified carotid artery (principal); I65.09 Occlusion and stenosis of unspecified vertebral artery; G45.8 Other transient cerebral ischemic attacks and related syndromes
CPT/HCPCS: 36415; 70450; 70496; 70498; 70551; 80048; 83735; 83880; 84484; 85025; 85610; 85730; 86140; 93005; 99284; 99285; J7030; Q9967

== ENCOUNTER 2023-08-12 17:13 | Outpatient (CLI) | payer MEDICARE, BC, SELFPAY | END 2023-08-12 17:14 | disposition home or self-care (01) | LOC: AMB 08-22 15:26 | PROVIDERS: PCP Family Medicine; Visit Provider Family Medicine | DX: R41.82 Altered mental status, unspecified (principal); R42 Dizziness and giddiness; R47.01 Aphasia | CPT/HCPCS: A0425; A0426 ==

== ENCOUNTER 2024-12-18 11:00 | Outpatient (RCR) | payer MEDICARE, BC, SELFPAY | END 2025-03-25 10:16 | disposition home or self-care (01) | PROVIDERS: PCP Family Medicine; Visit Provider Family Medicine | DX: H81.11 Benign paroxysmal vertigo, right ear (principal); Z51.89 Encounter for other specified aftercare | CPT/HCPCS: 95992; 97161 ==

== ENCOUNTER 2025-10-04 16:26 | Emergency (ER) | payer OTHER, MEDICARE, BC, SELFPAY ==
--- NOTE | 2025-10-04 16:29 | ED.GENADULT ---
HPI - General Adult General Time Seen by Provider: 16:29 Date Seen: 10/04/25 Chief complaint: Extremity Pain/Injury, Upper Stated complaint: WC: Fell down stairs RT arm pain Time Seen by Provider: 10/04/25 16:27 Source: patient, RN notes reviewed and old records reviewed Mode of arrival: ambulatory Limitations: no limitations History of Present Illness HPI narrative: 79-year-old male who comes in today with arm pain after a fall. Patient fell down a flight of stairs at [place] while he was carrying boxes, landed on his right side. denies head injury loss of consciousness, no neck or back pain, no chest pain or shortness of breath, no numbness or tingling the arms or legs. This happened about 8 hours prior to coming emergency department, he has taken 2 doses of Tylenol. Related Data Home Medications ?Medication ?Instructions ?Recorded ?Confirmed allopurinol 300 mg tablet 200 mg PO DAILY 04/11/22 10/04/25 apixaban 5 mg tablet (Eliquis) 5 mg PO BID 04/11/22 10/04/25 aspirin 81 mg chewable tablet 81 mg PO DAILY 04/11/22 10/04/25 (Aspirin Childrens) atenolol 100 mg tablet 100 mg PO DAILY 04/11/22 10/04/25 atorvastatin 40 mg tablet 40 mg PO HS 04/11/22 10/04/25 losartan 100 mg tablet 50 mg PO HS 04/11/22 10/04/25 magnesium citrate 100 mg capsule 400 mg PO DAILY 04/11/22 10/04/25 omeprazole 20 mg capsule,delayed 20 mg PO DAILY 04/11/22 10/04/25 release ezetimibe 10 mg tablet 10 mg PO DAILY 10/04/25 10/04/25 insulin glargine 100 unit/mL (3 10 unit subcut QPM 10/04/25 10/04/25 mL) subcutaneous pen (Lantus Solostar U-100 Insulin) Allergies Allergy/AdvReac Type Severity Reaction Status Date / Time lisinopril Allergy Mild Cough Verified 10/04/25 16:47 ibuprofen Allergy Unknown Verified 10/04/25 16:47 [facility] Medical History Hypertension ?I10 - Essential (primary) hypertension (ICD-10) Paroxysmal atrial fibrillation ?I48.0 - Paroxysmal atrial fibrillation (ICD-10) Stroke aborted by administration of thrombolytic agent ?I63.9 - Cerebral infarction, unspecified (ICD-10) Gallstone pancreatitis ?K85.10 - Biliary acute pancreatitis without necrosis or infection (ICD-10) Stroke (cerebrum) ?I63.9 - Cerebral infarction, unspecified (ICD-10) Gout ?M10.9 - Gout, unspecified (ICD-10) CKD (chronic kidney disease) stage 3, GFR 30-59 ml/min ?N18.30 - Chronic kidney disease, stage 3 unspecified (ICD-10) Chronic anticoagulation ?Z79.01 - senior living (current) use of anticoagulants (ICD-10) Hyperlipidemia ?E78.5 - Hyperlipidemia, unspecified (ICD-10) GERD (gastroesophageal reflux disease) ?K21.9 - Gastro-esophageal reflux disease without esophagitis (ICD-10) Diabetes mellitus ?E11.9 - Type 2 diabetes mellitus without complications (ICD-10) Coronary artery disease ?I25.10 - Atherosclerotic heart disease of [place] coronary artery without angina pectoris (ICD-10) Atrial fibrillation ?I48.91 - Unspecified atrial fibrillation (ICD-10) Surgical History S/P laparoscopic cholecystectomy ?Z90.49 - Acquired absence of other specified parts of digestive tract (ICD-10) S/P ear surgery ?Z98.890 - Other specified postprocedural states (ICD-10) H/O shoulder replacement ?Z96.619 - Presence of unspecified artificial shoulder joint (ICD-10) H/O arthroscopic knee surgery ?Z98.890 - Other specified postprocedural states (ICD-10) History of tonsillectomy ?Z90.89 - Acquired absence of other organs (ICD-10) History of knee replacement procedure of right knee ?Z96.651 - Presence of right artificial knee joint (ICD-10) History of knee replacement procedure of left knee ?Z96.652 - Presence of left artificial knee joint (ICD-10) S/P CABG x 2 ?Z95.1 - Presence of aortocoronary bypass graft (ICD-10) S/P CABG x 4 ?Z95.1 - Presence of aortocoronary bypass graft (ICD-10) S/P appendectomy ?Z90.49 - Acquired absence of other specified parts of digestive tract (ICD-10) Family History Other Coronary artery disease Social History Narrative: 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 He is . He is a former smoker. He does not currently drink alcohol. Highest level of school completed/degree received: high school graduate Smoking Status: Former smoker Do you use any of these nicotine containing products: None How often do you have a drink containing alcohol: never AUDIT-C Alcohol total score: 0 Non-prescribed substance use: denies use Caffeine: Yes service: Yes Exam Narrative: Exam Narrative: General: Well-developed and well-nourished, no acute distress Head: Atraumatic and normocephalic Eyes: Pupils are equal reactive, extraocular motions intact, conjunctiva clear ENT: External nose and ears are normal, posterior pharynx without erythema or exudate Neck: No midline cervical tenderness, full spontaneous range of motion the neck, trachea midline, no adenopathy Heart: Regular rate and rhythm no murmurs or thrills Lungs: Clear to auscultation bilaterally without wheezes or crackles Abdomen: Soft, nontender, nondistended with active bowel sounds Musculoskeletal: Right shoulder joint effusion with pain particularly withexternal rotation forward flexion, no tenderness Neurologic: Awake, alert, and oriented x3, no gross focal neurologic deficits, cranial nerves intact as tested Psych: Mood and affect are appropriate Skin: No rashes Const: Vital Signs, click to edit/add: Vital Signs - 24 hr 10/04/25 16:30 Temperature 98.0 F Pulse Rate [Pulse Oximeter] 62 Respiratory Rate 16 Blood Pressure [Le ft Upper Arm] 194/102 H Pulse Oximetry 95 Oxygen Delivery Me thod Room Air Course Course ED Course: Additional records reviewed:Reviewed most recent primary care visit from September 24 which was follow-up for diabetes with chronic kidney disease and long-term use of insulin, also hypertension which per my Nephrology was being maintained with systolic between 120-160 to maintain microvascular perfusion. Additional history from: Spouse Care impacted by: anticoagulation, prior stroke Testing considered but not performed: See ED course Disposition: 79-year-old male complaining of right shoulder pain after falling down some stairs this morning. He is chronically anticoagulated, denies head injury loss of conscious. On exam here, joint effusion on the right shoulder with pain with passive movement no tenderness. X-rays ordered, given age and anticoagulation status, CT of the head ordered as well. Reevaluation(s) Time of Reevaluation #1: 17:24 Reevaluation #1: CT head independently interpreted by me without evidence of acute intracranial pathology. X-ray of the right shoulder independently interpreted by me negative for acute findings. Vital Signs Vital signs: Initial Vital Signs Temperature 98.0 F 10/04/25 16:30 Temperature Source Temporal Artery Scan 10/04/25 16:30 Pulse Rate 62 10/04/25 16:30 Respiratory Rate 16 10/04/25 16:30 Blood Pressure 194/102 H 10/04/25 16:30 Blood Pressure Mean 132 H 10/04/25 16:30 Blood Pressure Position Sitting 10/04/25 16:30 Pulse Oximetry 95 10/04/25 16:30 Oxygen Delivery Method Room Air 10/04/25 16:30 Vital Signs Temperature 98.0 F 10/04/25 16:30 Pulse Rate 62 10/04/25 16:30 Respiratory Rate 16 10/04/25 16:30 Blood Pressure 194/102 H 10/04/25 16:30 Pulse Oximetry 95 10/04/25 16:30 Oxygen Delivery Method Room Air 10/04/25 16:30 Temperature 98.0 F 10/04/25 16:30 Pulse Rate 62 10/04/25 16:30 Respiratory Rate 16 10/04/25 16:30 Blood Pressure 194/102 H 10/04/25 16:30 Pulse Oximetry 95 10/04/25 16:30 Oxygen Delivery Method Room Air 10/04/25 16:30 Discharge Plan Discharge Clinical Impression: Acute pain of right shoulder, Anticoagulant long-term use Patient Disposition: Home, Self-Care Condition: Stable Instructions: Shoulder Pain (ED) Additional Instructions: Wear sling for comfort. Make sure your taking the sling off every couple hours to to some motion of the shoulder. Take Tylenol as needed for pain. Use Voltaren gel as well. Follow-up with your regular doctor in 5-7 days for physical therapy or repeat x-rays. Activity Level: Activity as Tolerated Discharge Diet: Regular Prescriptions: No Action allopurinol 300 mg tablet 200 mg PO DAILY Patient Comments: TAKE 1 TABLET BY MOUTH ONCE DAILY atenolol 100 mg tablet 100 mg PO DAILY Patient Comments: TAKE 1 TABLET BY MOUTH ONCE DAILY aspirin [Aspirin Childrens] 81 mg tablet,chewable 81 mg PO DAILY losartan 100 mg tablet 50 mg PO HS magnesium citrate 100 mg capsule 400 mg PO DAILY atorvastatin 40 mg tablet 40 mg PO HS Eliquis 5 mg tablet 5 mg PO BID omeprazole 20 mg capsule,delayed release(DR/EC) 20 mg PO DAILY Patient Comments: TAKE 1 CAPSULE BY MOUTH ONCE DAILY BEFORE A MEAL insulin glargine [Lantus Solostar U-100 Insulin] 100 unit/mL (3 mL) insulin pen 10 unit subcut QPM ezetimibe 10 mg tablet 10 mg PO DAILY Follow Up/Referrals: Zonia Galloway MD [Primary Care Provider, Obstetrics] Stand Alone Forms: [facility] Info Instructions
--- OUTSIDE RECORDS SUMMARY | 2025-10-04 16:29 | XMS_ITS | Clinical Summary ---
Author Organization [facility] Address [address] [place] [address] Phone Care Team Providers Care Railroad Inspector Name Role Phone Shanda Stein DO Primary Care Provider [phone] Allergies Active AllergyReactionsCriticalityNoted DateCommentsLisinoprilOther (see comments)Low12/12/2015 Medications MedicationSigDispense QuantityRefillsLast FilledStart DateEnd DateStatus allopurinol (ZYLOPRIM) 300 MG tablet Take 300 mg by mouth in the morning.09/16/2024ctive amLODIPine (NORVASC) 5 MG tablet Take 5 mg by mouth in the morning.05/06/2024ctive apixaban (ELIQUIS) 5 MG tablet Take 5 mg by mouth in the morning and 5 mg in the evening.01/08/2022ctive aspirin 81 MG chewable tablet Chew 81 mg in the morning.01/08/2022ctive atenolol (TENORMIN) 100 MG tablet Take 100 mg by mouth in the morning.07/14/2024ctive atorvastatin (LIPITOR) 40 MG tablet Take 40 mg by mouth in the morning.08/20/2024ctive ezetimibe (ZETIA) 10 MG tablet Take 10 mg by mouth in the morning.05/19/2024ctive insulin glargine (LANTUS) 100 UNIT/ML injection Inject 26 Units under the skin in the morning.5Active losartan (COZAAR) 50 MG tablet Take 50 mg by mouth in the morning.5Active omeprazole (PriLOSEC) [address] capsule Take 20 mg by mouth in the morning.Active MAGNESIUM CL-CALCIUM CARBONATE PO Take 1 tablet by mouth in the morning.02/14/2022ctive Active Problems ProblemNoted DateDiagnosed DatePeripheral vascular vgbmtpc8712/17/2024 Overview (12/17/2024): Longstanding. Remote history of stroke. History of left carotid endarterectomy surgery September 2023, which followed a TIA. Hypertensive heart and chronic kidney disease without heart failure, with stage 1 through stage 4 chronic kidney disease, or unspecified chronic kidney disease 12/14/2024 Assessment & Plan (12/17/2024 12:32 PM CDT): Stable. Longstanding. As noted blood pressure with a trusted blood pressure cuff at home ranging systolics between 120-140. He does have spikes with clinic visits. Taking his very extensive history of peripheral vascular disease (and, by definition, significant microvascular disease) as well as proven wide pulse pressure, I would not recommend over aggressive blood pressure management in this patient. Recommend maintaining systolic range between 120-160 in my opinion to maintain microvasculature perfusion, avoid falls, especially in this patient are very frail physiology and advanced age. Fornow, I would continue his medication regimen as ordered. Stage 3b chronic kidney azsfbbq3802/14/2022 Overview (12/17/2024): Baseline creatinine between 1.1-1.3 stretching back to 2008. He has had bouts of NIKKI with illness, once with contrast ATN in August 2023, resolving with time. And most recently with a creatinine of1.97 and 12 October 2024. Urinalysis from 2022 with trace ketones and absence of blood. UACR from 2024 at 33 mg/g. CT scan of the abdomen in August 2023 with both kidneys present without hydronephrosis and a superior right renal pole cyst which was deemed benign with no urinary bladderwall thickening. Assessment & Plan (12/17/2024 12:35 PM CDT): Creatinine has reached his baseline as noted above in the overview. 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 Proven microalbuminuria. Suspect the NIKKI episode in early October was due to significant prerenal status. Continue current medication regimen as ordered including management of blood pressure (see separate section), diabetic management, avoidance of all forms of NSAIDs, attempting to avoid IV contrast exposure, and ongoing physical fitness. In view of improved GFR, additional workup would be of lowyield at this point in time. We will tentatively plan to have Mr. Faulkner return to our clinic in 1 year for surveillance. Aggressive he needs to be seen sooner or questions arise, we will request thatwe contacted in order to help. Family History Medical HistoryRelationCommentsHeart diseaseBrotherHeart diseaseMotherHeart diseaseSisterRelationStatusCommentsBrotherDeceasedFatherDeceasedMotherDeceased Sister Social History Tobacco UseTypesPacks/DayYears UsedDateSmoking Tobacco: PedgtlLpjqphfwiv3Iqfx: 1978Smokeless Tobacco: Never Tobacco Cessation:Counseling Given: Not Answered Alcohol UseStandard Drinks/WeekCommentsNot Currently0 (1 standard drink = 0.6 oz pure alcohol)Sex and Gender InformationValueDate RecordedSex Assigned at Not on fileLegal SupNxpy5212/02/2024 10:24 AM ESTGender IdentityNot on fileSexual OrientationNot on file Last Filed Vital Signs Vital SignReadingTime TakenCommentsBlood Klpmdqcd355/6403 11:23 AM CDT [id number]/17/2024 11:23 AM CDTTemperature--Respiratory Rate--Oxygen Saturation 97%12/17/2024 11:23 AM CDTInhaled Oxygen Concentration--Dodjgo484 kg (248 lb) 12/17/2024 11:23 AM KORTbwqdd177.9 cm (6')12/17/2024 11:23 AM CDTBody Mass Index 33.6303 11:23 AM CDT Plan of Treatment Health MaintenanceDue DateLast DoneCommentsPneumococcal Vaccine: 50+ Years (1 of 2 - PCV)1962Diabetes: Ophthalmology Exam12/02/2024Diabetes: Pedal Pulse Ujobvwy7412/02/2024Diabetes: Sensory Foot Exam12/02/2024Diabetes: Visual Foot Exam 12/02/2024Influenza Vaccine (#1)2025Diabetes: Hemoglobin A1C12/23/2025 09/24/2025, 06/24/2025, 03/22/2025, Additional history existsHepatitis B Vaccine Aged OutNo longer eligible based on patient's age to complete this topic Insurance * Guarantor: Bimal Faulkner AAccount TypeRelation to PatientDate of BirthPhone Billing AddressPersonal/UqauwgLqzd57/08/1946 [address] [place] [address] Care Teams Team MemberRelationshipSpecialtyStart DateEnd Date Shanda Stein DO [address] [place], [place] [id number] PCP - GeneralFamily Medicine12/02/24
--- OUTSIDE RECORDS SUMMARY | 2025-10-04 16:29 | XMS_ITS | Clinical Summary ---
Author Organization [facility] Address [address] [place] [id number] Care Team Providers Care Air Quality Instrument Specialist Name Role Phone SaritaShanda Primary Care Provider [phone] Sergio Antoine MD Unavailable [phone] Allergies Active AllergyReactionsCriticalityNoted LuudSskaehxsSbfwhkqeadBmtxsUsz92/07/2016 Medications MedicationSigDispense QuantityRefillsLast FilledStart DateEnd DateStatus apixaban (Eliquis) 5 mg tablet Take 1 Tablet (5 mg) by mouth 2 times daily.ctive aspirin chewable 81 mg chewable tablet Indications:Paroxysmal atrial fibrillation (HC),Hx of completed strokeChew 1 Tablet (81 mg) by mouth once daily with a meal.ctive magnesium carb,citrate,oxide 300 mg magnesium tab Take 1 Tablet by mouth once daily.ctive omeprazole (PRILOSEC) 20 mg Delayed-Release capsule Take 20 mg by mouth once daily before a meal.Active ezetimibe (Zetia) 10 mg tablet Indications:Pure hypercholesterolemiaTake 1 Tablet (10 mg) by mouth once daily. 90 Tablet 4Active blood-glucose meter Indications:Uncontrolled type 2 diabetes mellitus with hyperglycemia (HC) Dispense meter covered by pts insurance. Check glucose fasting and 1-2 hours after meals. 1 Each 5Active lancets Indications:Uncontrolled type 2 diabetes mellitus with hyperglycemia (HC)As directed. Test 1 time per day for uncontrolled diabetes 100 Each 1205Active blood sugar diagnostic (Blood Glucose Test) strip Indications:Uncontrolled type 2 diabetes mellitus with hyperglycemia (HC)Test 1 time per day for uncontrolled diabetes 100 Each 5Active Insulin [place], Disposable, 32 gauge x 02/19 Indications:Uncontrolled type 2 diabetes mellitus with hyperglycemia (HC)For administering insulin at home. 100 Each 3025Active amLODIPine 5 mg tablet Indications:Essential hypertensionTake 1 Tablet (5 mg) by mouth once daily. 90 Tablet 5Active atorvastatin 40 mg tablet Indications:Atherosclerosis of big sandy coronary artery of big sandy heart without angina pectorisTake 1 Tablet (40 mg) by mouth at bedtime. 90 Tablet 5Active insulin glargine (U-100) 100 unit/mL (3 mL) pen Indications:Uncontrolled type 2 diabetes mellitus with hyperglycemia (HC)Inject 30 units subcutaneous before bedtime. 30U at bedtime. 9 mL 5Active atenoloL (TENORMIN) 100 mg tablet Indications:Essential hypertensionTake 1 Tablet (100 mg) by mouth once daily. 90 Tablet 5Active losartan (COZAAR) 50 mg tablet Indications:HTN (hypertension)Take 1 Tablet (50 mg) by mouth once daily. 90 Tablet 1125Active allopurinoL (ZYLOPRIM) 100 mg tablet Indications:History of goutTake 2 Tablets (200 mg) by mouth once daily. 180 Tablet 5Active atenoloL (TENORMIN) 100 mg tablet Indications:Essential hypertensionTake 1 tablet by mouth once daily 90 Tablet 310/08/20231008/Discontinued(Reorder (E-cancel not sent)) losartan (COZAAR) 50 mg tablet Indications:HTN (hypertension)Take 1 Tablet (50 mg) by mouth once daily. 90 Tablet 101/14/20241008/Discontinued(Reorder (E-cancel not sent)) allopurinoL (ZYLOPRIM) 100 mg tablet Indications:History of goutTake 2 Tablets (200 mg) by mouth once daily. take 100mg by mouth once daily for 2 weeks; then increase to 200mg for 2 weeks; then increase to 300mg 180 Tablet 309/Discontinued(Reorder (E-cancel not sent)) allopurinoL (ZYLOPRIM) 100 mg tablet Indications:History of goutTake 2 Tablets (200 mg) by mouth once daily. take 100mg by mouth once daily for 2 weeks; then increase to 200mg for 2 weeks; then increase to 300mg 180 Tablet Discontinued(Reorder (E-cancel not sent)) Active Problems Patient Care Coordination No te Formatting of this note migh t be different from the original. Patient requests all visit notes be forwarded to Dr. Carlos Ulloa 08/18/2021 ProblemNoted DateDiagnosed DateSkin atddpl7207/05/2025 Overview (08/23/2025): 06/29/25, Left Superior Forehead, SCCIS, Mohs completed on 08/23/[address] Dawit Coleman Type 2 diabetes mellitus with stage 3a chronic kidney disease, with long-term current use of pqchbhy1112/01/2024Platelets ppoznugvw11/01/2024Long term (current) use of weaozkippcuswj84History of total bilateral knee twzqnbhcofs03/15/202305/S/P reverse total shoulder arthroplasty, left Stage 3a chronic kidney zzqiejn12/11/2022Paroxysmal atrial yoxrvikwkckb04/04/2022CAD (coronary artery disease)06/30/2021History of gout 05/16/2020Stroke (cerebrum)05/08/2020CAD (coronary artery disease)05/08/2020 Gastroesophageal reflux disease without ossgtvtanph11/02/2020Hyperlipidemia 05/08/2020AKI (acute kidney injury)05/08/2020Presence of aortocoronary bypass graft03/03/2014Diaphragmatic sopmxa87 Overview (02/18/2023): onset unknown Chest pain05/30/2009Unspecified hearing loss02/06/2007 Overview (07/13/2008): 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 Longstanding. As noted blood pressure with [...] are very frail physiology and advanced age. For now, I would continue his medication regimen as ordered. Other and unspecified hyperlipidemiaAcute ischemic stroke Resolved Problems ProblemNoted DateDiagnosed DateResolved DateAnticoagulation monitoring, INR range 2-302//2Acute respiratory iggqnbn10/M2 (diabetes mellitus, type 2)/07/2020Other and unspecified angina pnqxyqyf66/11/2022 Encounters DateTypeDepartmentCare RjdcIeniptifjbu61/21/2025Results Follow-Up [facility] [address] [facility] [place] [address] Shanda Stein DO 09/24/2025 10:25 AM CSTOffice Visit [facility] [address] AT [facility] [place] [address] Shanda Stein DO Farmxpvd37/19/1393Qzsuaf63/14/6790Ngozmt26/17/2025 8:45 AM CSTProcedure Only [facility] [address] [address] Dawit Coleman MD Procedure ([facility])08/23/20257445Dukotb18/16/6205Xtsurc78/15/2025Telephone [facility] [address] [place] [address] Shanda Stein, Order07/07/2025Telephone [facility] [address] [facility] [address] Claire Tavarez, KLEVER Results (US CAROTID DUPLEX BILATERAL - 12576.0 )07/05/2025 9:45 AM CDTAncillary Procedure [facility] [address] [place] [address] 07/05/2025Telephone [facility] [address] [address] Arin Yoon, Abnormal Lab Vvszpfg0907/05/2025Travelfrom Last 3 Months Immunizations ImmunizationAdministration DatesNext DueInfluenza A (H1N1), Inactivated (Age 6- 35 Mos)09/25/2009Influenza A (H1N1), Inactivated (Age >=3 Years)09/06/2009 Influenza Virus, Vlftbcxbydv53/06/2016,06/21/2015,08/19/2014,07/07/2013, 07/06/2012,08/07/2011Influenza, High-dose Ktprjkapgfy90/20/2020,06/24/2019, 07/03/2018,07/25/2017,07/12/2016Influenza, High-dose Quadrivalent Inactivated 06/02/2020Influenza, IIV3 (Age >=3 years)07/14/2015,07/02/2014,07/06/2012, 06/19/2011,07/01/2009,07/13/2008,07/17/2004,08/02/2003,08/03/2002Pneumococcal Poly,23-Valent (Pneumovax)06/01/2009,10/07/2008Pneumococcal conj 13-Valent (Prevnar 13)07/03/2018Td (Age >=7 Years)08/03/1995Tdap1Tetanus Toxoid 10/07/2006 Family History Medical HistoryRelationNameCommentsHeart DiseaseBrother 2DaleOtherFather accidental at age 52SeizuresMaternal GrandmotherHeart DiseaseMotherHeart DiseaseSisterJaneOtherSonRelationNameStatusCommentsBrother 1RobertDeceased (Age 64)Mad Cow DiseaseBrother 2DaleFatherDeceased (Age 52)Maternal GrandmotherMother DeceasedSisterJaneSon Social History Tobacco UseTypesPacks/DayYears UsedDateSmoking Tobacco: EwsghfPmsdglgtwa4Rupu: 10/07/1977Smokeless Tobacco: Never Tobacco Cessation:Counseling Given: Yes Alcohol UseStandard Drinks/WeekCommentsNo0 (1 standard drink = 0.6 oz pure alcohol)PHQ-2AnswerDate RecordedPHQ-2 TOTAL RWPUF376Social Connections AnswerDate RecordedDo you often feel lonely or isolated from those around you?0 10/15/2024Financial Resource StrainAnswerDate RecordedDifficulty of Paying Living Upeqrdjn203/09/2025Difficulty of Paying Living ExpensesNot on file 10/15/2024Food InsecurityAnswerDate RecordedDo you worry your food will run out before you are able to buy more?Transportation NeedsAnswerDate RecordedDoes lack of transportation keep you from medical appointments?1 10/15/2024Does lack of transportation keep you from work, meetings or getting things that you need?Housing StabilityAnswerDate RecordedWhat is your housing situation today?UtilitiesAnswerDate RecordedDo you have trouble paying for utilities (for example, heat, electricity, water, phone)?1 10/15/2024Sex and Gender InformationValueDate RecordedSex Assigned at BirthNot on fileLegal EcdCpxb21/ 6:45 AM CSTGender IdentityNot on fileSexual OrientationNot on fileOccupationIndustryJob Start DateJob End DateRetiredNot on fileNot on fileNot on file Last Filed Vital Signs Vital SignReadingTime TakenCommentsBlood Cufzthcv155/6809/24/2025 10:25 AM EDUCATION INTERN Abhlf467509/24/2025 10:25 AM MLPJpyovydjbkg68.4 ??C (97.6 ??F)08/18/2023 11:49 AM CSTRespiratory Xgle695710/18/2022 11:49 AM CSTOxygen Ulsokszoha93%09/24/2025 10:25 AM CSTInhaled Oxygen Concentration--Qnhjhu904.7 kg (266 lb)09/24/2025 10:25 AM BPDCgbyvp570.4 cm (6' 1)09/05/2023 1:38 PM CSTBody Mass Index35.0909/05/2023 1:38 PM EDUCATION INTERN Plan of Treatment DateTypeDepartmentCare Team (Latest Contact Info)Fdvjcmcnabr87/23/2026 2:15 PM CDTOffice Visit [facility] [address] [address] Arin Yoon [address] [place] [address] 01/03/2026 10:25 AM CDTOffice Visit [facility] [address] [place] [address] Shanda Stein DO [address] [place] [address] Health MaintenanceDue DateLast DoneCommentsZoster (shingles) series for age 50+ (1 of 2)1993Medicare Wellness for age 65+2008Tetanus booster , 08/03/1995RSV vaccine for adults or (1 - 1-dose 75+ series)2018BMI (ht and wt on same day) for age 18+09/05/2024 09/05/2023, 08/18/2021OVID-19 vaccine series ( season)2025 Influenza Vaccine (#1)/, 06/24/2019, 07/03/2018, Additional history existsDepression screening for age 12+604/04/2025, 10/09/2023, 02/14/2022, Additional history existsPneumococcal series for age 50+Completed 07/03/2018, 06/01/2009, 10/07/2008Hepatitis B series for 19+Aged OutNo longer eligible based on patient's age to complete this topic Medical Devices ImplantedTypeAreaManufacturerDevice IdentifierShelf Expiration DateModel / Serial / LotAllograft Vasc 0.8x8cm Vascuguard Bovine - [id number] Implanted:Qty: 1 on 08/16/2023 by Dina Snyder MD at [facility] Left: Carotid ArteryBaxter International Inc11/23/[id number] / / [id number]:Sticker sheet not received Procedures Procedure NamePriorityDate/TimeAssociated DiagnosisCommentsCREATININERoutine 09/24/2025 10:13 AM EDUCATION INTERN Stage 3a chronic kidney disease (HC) HEMOGLOBIN A1C MONITORING (POCT)Ueqfqsh1109/24/2025 10:13 AM EDUCATION INTERN Type 2 diabetes mellitus with stage 3a chronic kidney disease, with long-term current use of insulin (HC) URIC DKNSPsdfvls10/19/2025 10:08 AM EDUCATION INTERN History of gout US CAROTID DUPLEX CDFWWYQNFKkmxnwb08/29/2025 10:09 AM CDT Stenosis of carotid artery, unspecified laterality from Last 3 Months Results * CREATININE (09/24/2025 10:13 AM EDUCATION INTERN)ComponentValueRef RangeTest MethodAnalysis TimePerformed AtPathologist SignatureCREATININE1.220.70 - 1.22 mg/dL09/25/2025 5:04 AM CSTQUEST OLTKUBWXLCSLZDJ53> OR = 60 mL/min/1.23j92509/25/2025 5:04 AM CSTQUEST DIAGNOSTICSSpecimen (Source)Anatomical Location / Laterality Collection Method / VolumeCollection TimeReceived TimeBloodBLOOD SPECIMEN / UnknownQuest Collect / Xuzmdya5909/24/2025 10:13 AM CST09/24/2025 10:13 AM EDUCATION INTERN Narrative Authorizing ProviderResult TypeResult StatusHeaknickerbocker hospital Crissy [facility] Medical CenterHEMISTRYFinal ResultPerforming OrganizationAddressCity/State/ZIP CodePhone Number [facility] [address] [address], [place] [phone] * (ABNORMAL) HEMOGLOBIN A1C MONITORING (POCT) (09/24/2025 10:13 AM EDUCATION INTERN)Component ValueRef RangeTest MethodAnalysis TimePerformed AtPathologist SignaturePOC HEMOGLOBIN A1C7.1(H)<6.0 % OF TOTAL HGB111/25/2024 10:[address] [facility]ICComment: Any point of care results exhibiting inconsistency with the patient's clinical status should be repeated using a different testing method. Specimen (Source)Anatomical Location / LateralityCollection Method / Volume Collection TimeReceived TimeBloodBLOOD SPECIMEN / UnknownQuest Collect / Unknown 09/24/2025 10:13 AM CST09/24/2025 10:13 AM EDUCATION INTERN Narrative Authorizing ProviderResult TypeResult StatusMartins Ferry Hospitalther Crissy [facility] HospitalISTRYMontefiore Medical Centeral ResultPerforming OrganizationAddressty/State/ZIP CodePhone Number [facility] [address] [address], [place] [phone] [address], [place] [phone] * URIC ACID (09/24/2025 10:08 AM EDUCATION INTERN)ComponentValueRef RangeTest MethodAnalysis TimePerformed AtPathologist SignatureURIC ACID4.44.0 - 8.0 mg/dL09/30/2025 1:52 AM CSTQUEST DIAGNOSTICSComment:Therapeutic target for gout patients: <6.0 mg/dLSpecimen (Source)Anatomical Location / LateralityCollection Method / VolumeCollection TimeReceived TimeBloodBLOOD SPECIMEN / UnknownQuest Collect / Fckicja4709/24/2025 10:08 AM CST09/24/2025 11:59 AM EDUCATION INTERN Narrative Authorizing ProviderResult TypeResult StatusHeather Crissy Stein DOCHEMISTRYFinal ResultPerforming OrganizationAddressCity/State/ZIP CodePhone Number [facility] [address] [place] [address], * CAROTID DUPLEX BILATERAL (07/05/2025 10:09 AM CDT)Anatomical Region LateralityModalityCAROTID, NECKUltrasoundSpecimen (Source)Anatomical Location / LateralityCollection Method / VolumeCollection TimeReceived Time Impressions 07/05/2025 3:13 PM CDT 1. ??Severe (greater than 70 percent) stenosis of the right proximal ICA by velocity criteria. ?? 2. ??Status post left carotid end-arterectomy without evidence for flow-limiting stenosis. ?? 3. ??Antegrade flow in the bilateral vertebral arteries. ?? Dalia Iverson D.O. Diagnostic Neuroradiologist [email or web address] DANDRE/[email or web address] / ?? Narrative 07/05/2025 3:13 PM CDT Table formatting from the original result was not included. For Patients: As a result of the Cures Act, medical imaging exams and procedure reports are released immediately into your electronic medical record. ??You may view this report before your referring provider. ?? If you have questions, please contact your health care provider. BILATERAL CAROTID ULTRASOUND, 07/05/2025 CLINICAL HISTORY: ??Right carotid stenosis, status post left carotid end-arterectomy 2022. ?? TECHNIQUE: ??The carotid circulations and the vertebral arteries in the neck were examined with bourgeois-scale ultrasound, color-flow and Doppler spectral analysis. Degrees of stenosis were determined using SRU 2002 Consensus Panel Criteria. COMPARISON: ??CTA neck 03/03/2024, carotid ultrasound 02/20/2024. ?? FINDINGS: ??Scattered plaquing and intimal thickening throughout the right common carotid artery, with mild intimal thickening throughout the left common carotid artery. ??Bulky, shadowing plaque at the right carotid bulb extending into the ICA origin, with significantly elevated ICA flow velocities reaching greater than 300 cm/second in the proximal and mid segment. ??Widely patent left carotid bifurcation status post end-arterectomy. ??Normal left ICA velocities. ??ICA/CCA ratios are 4.74 on the right and 1.18 on the left. ??Antegrade flow is present within the bilateral vertebral arteries, with similar limited visualization of flow throughout the right vertebral artery. ??Multiphasic waveforms in both subclavian arteries. ?? Peak-Systolic Velocity Right Left Distal CCA 65 99 Proximal ICA 308 117 Mid ICA 305 111 Distal ICA 135 83 ICA/CCA Ratio Right Left 4.74 1.17 Vertebral Artery Right Left Antegrade x x Retrograde ?? Authorizing ProviderResult TypeResult StatusHeather Crissy Stein DOUSFinal Result from Last 3 Months Insurance * Guarantor: Bimal Faulkner AAccount TypeRelation to PatientDate of BirthPhone Billing AddressPersonal/KmsrlpJgts82/08/1946 [address] [place] [address] Advance Directives TypeDate RecordedPatient RepresentativeExplanationHealthcare Directive06/02/2009 Healthcare Directive05/30/2009 * Full Code (Latest Code Status on File) Date ActivatedDate GplgsyheupcZicdgnhh85/6/2023 7:00 PM08/18/2023 5:52 PM QuestionAnswerCommentsCode Status Discussion:* Reviewed Preferences * Full Code Date ActivatedDate InactivatedComments05/08/2020 2:55 AM05/10/2020 8:06 PM * Full Code Date ActivatedDate InactivatedComments05/30/2009 4:08 PM06/01/2009 1:53 PM Care Teams Team MemberRelationshipSpecialtyStart DateEnd Date Shanda Stein DO [address] [place] [address] PCP - GeneralFamily Practice01/09/24 Sergio Antoine MD [address] [place] [address] Consulting PhysicianNephrology12/17/24 Dr. Carlos Ulloa [address] NADER Garcia [address] [place] [address] 08/18/21
[2025-10-04 16:30] VITALS: BP 194/102; PULSE 62; RESP 16; TEMP 36.7; O2SAT 95; BMI 35.2
--- NOTE | 2025-10-04 16:56 | CRLHL7_ITS ---
For Patients: As a result of the Cures Act, medical imaging exams and procedure reports are released immediately into your electronic medical record. You may view this report before your referring provider. If you have questions, please contact your health care provider. INDICATION: Fall down stairs, anticoagulated. TECHNIQUE: Head CT without contrast. COMPARISON: MRI brain without contrast 08/12/2023, CT head without contrast 08/12/2023. FINDINGS: CSF spaces: Within normal limits for age. Brain parenchyma and extra-axial spaces: There are nonspecific low attenuation white matter changes consistent with chronic microvascular disease. No sign of mass, hemorrhage, or midline shift. Encephalomalacia within the left cerebellar hemisphere and left thalamus. Generalized volume loss. Skull base and calvarium: Status post right mastoidectomy. Opacification of the underpneumatized left mastoid air cells. Minimal bilateral maxillary sinus mucosal thickening. The visualized orbits are grossly unremarkable status post bilateral lens replacement. No skull fractures. IMPRESSION: No acute intracranial abnormality. Please note that all CT scans at this facility use dose modulation, iterative reconstruction, and/or weight-based dosing when appropriate to reduce radiation dose to as low as reasonably achievable. Dictated by Erica Coleman MD @ 10/04/2025 5:46:59 PM (Electronically Signed)
--- NOTE | 2025-10-04 17:16 | CRLHL7_ITS ---
For Patients: As a result of the Cures Act, medical imaging exams and procedure reports are released immediately into your electronic medical record. You may view this report before your referring provider. If you have questions, please contact your health care provider. Indication: Right shoulder pain after fall. Technique: Three views of the right shoulder. Comparison: None. Findings: Normal alignment. Old appearing Hill-Sachs deformity. No gross evidence acute fracture. 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 Moderate acromioclavicular joint osteoarthritis Impression: No acute osseous abnormality. Dictated by Aquiles Clements MD @ 10/04/2025 5:42:13 PM (Electronically Signed)
== END 2025-10-04 18:42 | disposition home or self-care (01) ==
PROVIDERS: Emergency Provider Family Medicine; PCP Family Medicine
DX: M25.511 Pain in right shoulder (principal); W10.9XXA Fall (on) (from) unspecified stairs and steps, initial encounter; Z79.01 Long term (current) use of anticoagulants
CPT/HCPCS: 70450; 73030; 99284